=== PATIENT | female | born 1970 | race Hispanic/Latino ===

== ENCOUNTER 2017-07-15 06:23 | Emergency (ER) | payer OTHER ==
[~2017-07-15 06:23] MED LIST: ACET-66 PO; LISI-613 PO; MIRALAX PO; RANI300T4 PO; SIMV20TA6 PO
[2017-07-15 06:38] LABS: EOSINOPHILS % (AUTO) 5.1 % (0.0-8.0); HEMATOCRIT 34.9 % (36-48); LYMPHOCYTES % (AUTO) 29.1 % (21.0-51.0); MEAN CORPUSCULAR HEMOGLOBIN 29.3 pg (27.0-33.0); MEAN CORPUSCULAR HGB CONC 34.1 g/dL (32.0-36.0); MEAN CORPUSCULAR VOLUME 85.9 fL (79-99); MONOCYTES % (AUTO) 8.2 % (3.0-13.0); NEUTROPHILS % (AUTO) 56.6 % (40.0-77.0); NUCLEATED RED BLOOD CELLS 0.1 % (0.0-0.19); PLATELET COUNT (AUTO) 210 K/uL (130-400); RED BLOOD CELL COUNT(AUTO) 4.06 MIL/uL (4.00-5.50); RED CELL DISTRIBUTION WIDTH 13.9 % (11.0-15.5)
[2017-07-15 06:47] LABS: CREATININE 1.2 mg/dL (0.5-1.5); POTASSIUM 3.9 mmol/L (3.5-5.1)
[2017-07-15 06:48] LABS: APPEARANCE,URINE CLOUDY (CLEAR); BILIRUBIN,URINE NEGATIVE (NEGATIVE); COLOR,URINE YELLOW (YELLOW); GLUCOSE, URINE (UA) NEGATIVE (NEGATIVE); KETONES,URINE NEGATIVE (NEGATIVE); LEUKOCYTE ESTERASE ,URINE NEGATIVE (NEGATIVE); NITRATE,URINE NEGATIVE (NEGATIVE); OCCULT BLOOD,URINE LARGE (NEGATIVE); PH,URINE 5.5 (5.0-8.0); PROTEIN,URINE 30 (NEGATIVE); UROBILINOGEN,URINE 0.2 mg/dL (0.2-1.0)
[2017-07-15] MEDS ORDERED: ONDANSETRON HCL 4 MG/2 ML VIAL ONE (06:53)
[2017-07-15] MEDS ORDERED: MECLIZINE HCL 25 MG TABLET ONE (06:53)
[2017-07-15 07:08] LABS: BACTERIA,URINE Rare /HPF (None Seen); RBC,URINE TNTC /HPF (0-1); SQUAMOUS EPITHELIAL CELL,UR Few /LPF (0-2)
== END 2017-07-15 08:05 | disposition home or self-care (01) ==
LOC: EDH 06:23
DX: R07.9 Chest pain, unspecified (principal); R42 Dizziness and giddiness; I10 Essential (primary) hypertension; E78.5 Hyperlipidemia, unspecified; Z90.49 Acquired absence of other specified parts of digestive tract
CPT/HCPCS: 36415; 71010; 80048; 81001; 84484; 85025; 93005; 96374; 99285; J2405

== ENCOUNTER 2017-11-08 15:59 | Emergency (ER) | payer OTHER ==
[2017-11-08 16:39] LABS: APPEARANCE,URINE CLOUDY (CLEAR); BILIRUBIN,URINE NEGATIVE (NEGATIVE); COLOR,URINE YELLOW (YELLOW); GLUCOSE, URINE (UA) NEGATIVE (NEGATIVE); KETONES,URINE NEGATIVE (NEGATIVE); LEUKOCYTE ESTERASE ,URINE TRACE (NEGATIVE); NITRATE,URINE NEGATIVE (NEGATIVE); OCCULT BLOOD,URINE SMALL (NEGATIVE); PH,URINE 5.5 (5.0-8.0); PROTEIN,URINE 100 (NEGATIVE); UROBILINOGEN,URINE 0.2 mg/dL (0.2-1.0)
[2017-11-08] MEDS ORDERED: IPRATROPIUM/ALBUTEROL SULFATE 3 ML SOLUTION IH ONE (16:41)
[2017-11-08 16:46] LABS: HCG,QUAL RESULT NEGATIVE (NEGATIVE)
[2017-11-08 16:52] LABS: RAPID GROUP A STREP NEGATIVE (NEGATIVE)
[2017-11-08 16:55] LABS: SQUAMOUS EPITHELIAL CELL,UR 50-100 /HPF (0-2)
[2017-11-08 16:56] LABS: RBC,URINE None Seen /HPF (0-1)
[2017-11-08 16:57] LABS: BACTERIA,URINE Many /HPF (None Seen)
== END 2017-11-08 17:14 | disposition home or self-care (01) ==
LOC: EDH 15:59
DX: J20.9 Acute bronchitis, unspecified (principal); E78.5 Hyperlipidemia, unspecified; I10 Essential (primary) hypertension; F41.9 Anxiety disorder, unspecified; E66.9 Obesity, unspecified; Z68.42 Body mass index [BMI] 45.0-49.9, adult
CPT/HCPCS: 71046; 81001; 81025; 87804; 87880; 94640

== ENCOUNTER 2020-03-17 16:32 | Emergency (ER) | payer SELFPAY ==
[~2020-03-17 16:32] MED LIST changes: +SIMV-43 PO; -SIMV20TA6 PO
[2020-03-17 17:14] LABS: BASOPHILS % (AUTO) 0.4 % (0.0-5.0); EOSINOPHILS % (AUTO) 3.8 % (0.0-8.0); LYMPHOCYTES % (AUTO) 20.8 % (21.0-51.0); MEAN CORPUSCULAR HEMOGLOBIN 27.2 pg (27.0-33.0); MEAN CORPUSCULAR HGB CONC 33.1 g/dL (32.0-36.0); MEAN CORPUSCULAR VOLUME 82.3 fL (79-99); MONOCYTES % (AUTO) 8.4 % (3.0-13.0); NEUTROPHILS % (AUTO) 66.4 % (40.0-77.0); PLATELET COUNT (AUTO) 196 K/uL (130-400); RED BLOOD CELL COUNT(AUTO) 4.74 MIL/uL (4.00-5.50); RED CELL DISTRIBUTION WIDTH 14.3 % (11.0-15.5); WHITE BLOOD COUNT (AUTO) 5.2 K/uL (4.8-10.8)
[2020-03-17 17:22] LABS: CREATININE 0.9 mg/dL (0.5-1.5); POTASSIUM 4.1 mmol/L (3.5-5.1)
[2020-03-17 17:40] LABS: ALBUMIN 3.6 g/dL (3.5-5.0); BILIRUBIN,TOTAL 0.4 mg/dL (0.2-1.0); TOTAL PROTEIN, SERUM 8.2 g/dL (6.0-8.3)
[2020-03-17] MEDS ORDERED: ACETAMINOPHEN 325 MG TAB ONE (17:46)
[2020-03-17 18:33] LABS: APPEARANCE,URINE Cloudy (CLEAR); BILIRUBIN,URINE Negative (NEGATIVE); COLOR,URINE Red (YELLOW); GLUCOSE, URINE (UA) Negative (NEGATIVE); KETONES,URINE Negative (NEGATIVE); LEUKOCYTE ESTERASE ,URINE Trace (NEGATIVE); NITRATE,URINE Negative (NEGATIVE); OCCULT BLOOD,URINE Large (NEGATIVE); PROTEIN,URINE POS 1+ mg/dL (NEGATIVE)
[2020-03-17 18:39] LABS: HCG,QUAL RESULT NEGATIVE (NEGATIVE)
[2020-03-17] MEDS ORDERED: HYDRALAZINE HCL 20 MG/ML VIAL ONE (18:46)
[2020-03-17 18:51] LABS: BACTERIA,URINE Few /HPF (None Seen); RBC,URINE TNTC /HPF (0-1)
[2020-03-17 18:52] LABS: SQUAMOUS EPITHELIAL CELL,UR Rare /HPF (0-2)
[2020-03-17] MEDS ORDERED: LIDOCAINE 5% TOPICAL PATCH TP ONE (19:12)
== END 2020-03-17 19:19 | disposition home or self-care (01) ==
LOC: EDH 16:32
DX: M62.838 Other muscle spasm (principal); M54.5 Low back pain; F41.9 Anxiety disorder, unspecified; F32.9 Major depressive disorder, single episode, unspecified; I10 Essential (primary) hypertension; E78.5 Hyperlipidemia, unspecified; Z90.49 Acquired absence of other specified parts of digestive tract; Z87.891 Personal history of nicotine dependence
CPT/HCPCS: 36415; 74176; 80053; 81001; 81025; 83690; 84484; 85025; 93005; 99285; J0360

== ENCOUNTER 2022-01-09 12:39 | Inpatient (IN) | payer OTHER ==
[~2022-01-09] VITALS: Ht 152.4 cm; Wt 131.1 kg
[~2022-01-09 12:39] MED LIST changes: +AMLO5TAB4 PO; +Folic Acid/Vitamin B Comp W-C PO; +HYDR25 PO; +INSLAN SQ; +INSU100V3 SQ; +LINE600T11 PO; -LISI-613 PO; +METO50TA18 PO; +POTA-187 PO; +PRED20B PO; +SYRI-1628 MC; +[UNRECOGNIZED DRUG - CODE] TP
[2022-01-09] MEDS ORDERED: VANCOMYCIN 1G/250ML KIT 250 ML IV ONE (13:16)
[2022-01-09 13:19] LABS: BASOPHILS % (AUTO) 0.1 % (0.0-5.0); HEMATOCRIT 33.5 % (36-48); LYMPHOCYTES % (AUTO) 11.7 % (21.0-51.0); MEAN CORPUSCULAR HEMOGLOBIN 28.1 pg (27.0-33.0); MEAN CORPUSCULAR HGB CONC 33.1 g/dL (32.0-36.0); MEAN CORPUSCULAR VOLUME 84.8 fL (79-99); MONOCYTES % (AUTO) 8.2 % (3.0-13.0); NEUTROPHILS % (AUTO) 79.6 % (40.0-77.0); PLATELET COUNT (AUTO) 196 K/uL (130-400); RED BLOOD CELL COUNT(AUTO) 3.95 MIL/uL (4.00-5.50); RED CELL DISTRIBUTION WIDTH 13.9 % (11.0-15.5); WHITE BLOOD COUNT (AUTO) 14.7 K/uL (4.8-10.8)
[2022-01-09 13:28] LABS: CREATININE 1.4 mg/dL (0.5-1.5); POTASSIUM 3.8 mmol/L (3.5-5.1)
[2022-01-09] MEDS ORDERED: 0.9%NACL 1000ML 1,365 ML IV ONE (13:30)
[2022-01-09] MEDS ORDERED: ACETAMINOPHEN 500 MG TABLET PO ONE (13:30)
[2022-01-09] MEDS ORDERED: ZOSYN 3.375GM +NS 50ML IV SCH (13:30)
[2022-01-09] MEDS ORDERED: VANCOMYCIN 1G VIAL IVPB ONE (13:30)
[2022-01-09 13:33] LABS: BILIRUBIN,TOTAL 0.5 mg/dL (0.2-1.0); TOTAL PROTEIN, SERUM 8.3 g/dL (6.0-8.3)
[2022-01-09 13:41] LABS: CRP QUANTITATIVE 171.9 mg/L (0.00-9.0)
[2022-01-09] MEDS ORDERED: IOHEXOL 350 MG/ML 100ML INFUS..BTL IV ONE (13:43)
[2022-01-09] MEDS: MEROPENEM 1 GM VIAL IVP SCH ×2 (15:45→23:08)
[2022-01-09] MEDS ORDERED: VANCOMYCIN PROTOCOL PER PHARMACY IV SCH (16:00)
[2022-01-09] MEDS ORDERED: COMPOUND IV REFRIGERATED 1 EACH IVSOLN MISC PRN (16:00)
[2022-01-09 16:01] LABS: HEMOGLOBIN A1C 5.9 % (4.0-6.0)
[2022-01-09 17:30] LABS: APPEARANCE,URINE CLEAR (CLEAR); BILIRUBIN,URINE NEGATIVE (NEGATIVE); COLOR,URINE YELLOW (YELLOW); GLUCOSE, URINE (UA) >=1000 mg/dL (NEGATIVE); KETONES,URINE NEGATIVE (NEGATIVE); LEUKOCYTE ESTERASE ,URINE NEGATIVE (NEGATIVE); NITRATE,URINE NEGATIVE (NEGATIVE); OCCULT BLOOD,URINE TRACE-INTACT (NEGATIVE); PH,URINE 5.5 (5.0-8.0); PROTEIN,URINE NEGATIVE (NEGATIVE); UROBILINOGEN,URINE 0.2 mg/dL (0.2-1.0)
[2022-01-09 17:44] LABS: BACTERIA,URINE Few /HPF (None Seen); SQUAMOUS EPITHELIAL CELL,UR Few /HPF (0-2)
[2022-01-09 17:45] LABS: MUCUS,URINE Few LPF (None Seen)
[2022-01-09] MEDS ORDERED: 0.9%NACL 1000ML 1,000 ML IV ONE (18:00)
[2022-01-09] MEDS ORDERED: DEXL60CA3 PO (19:20)
[2022-01-09] MEDS ORDERED: FLUO40CA7 PO (19:20)
[2022-01-09] MEDS ORDERED: SITA1TAB6 PO (19:20)
[2022-01-09] MEDS ORDERED: EMPA10TA PO (19:20)
[2022-01-09] MEDS ORDERED: HYDR-4153 PO (19:20)
[2022-01-09] MEDS ORDERED: METO50TA18 PO (19:20)
[2022-01-09] MEDS ORDERED: INSU100V3 SQ (19:20)
[2022-01-09] MEDS ORDERED: ARIP5TAB56 PO (19:20)
[2022-01-09 21:50] VITALS: BP 123/50
[2022-01-09 23:54] VITALS: BP 111/53
[2022-01-10 03:46] VITALS: BP 105/46
[2022-01-10] MEDS: MEROPENEM 1 GM VIAL IVP SCH ×3 (06:53→22:21)
[2022-01-10 08:08] VITALS: BP 110/53
[2022-01-10] MEDS: DIPHENHYDRAMINE HCL 25 MG CAPSULE PO PRN ×2 (08:24→21:51)
[2022-01-10 11:10] VITALS: BP 105/55
[2022-01-10] MEDS ORDERED: ACETAMINOPHEN 500 MG TABLET PO PRN (11:30)
[2022-01-10] MEDS: VANCOMYCIN 1.5GM/NS 250ML IV SCH ×2 (12:18)
[2022-01-10 16:00] VITALS: BP 123/50
[2022-01-10] MEDS ORDERED: PERMETHRIN CREAM 5% 60GM TUBE TP SCH (17:30)
[2022-01-10] MEDS: ZOSYN 3.375GM +NS 50ML IV SCH ×2 (17:40→20:23)
[2022-01-10 19:35] VITALS: BP 115/62
[2022-01-10] MEDS: ARIPIPRAZOLE 5 MG TABLET PO SCH (20:23)
[2022-01-10] MEDS: SIMVASTATIN 20 MG TABLET PO SCH (20:23)
[2022-01-10] MEDS: METOPROLOL TARTRATE 50 MG TAB PO SCH (20:23)
[2022-01-10 23:10] VITALS: BP 110/43
[2022-01-11 03:38] VITALS: BP 103/64
[2022-01-11] MEDS: ZOSYN 3.375GM +NS 50ML IV SCH ×3 (04:53→21:57)
[2022-01-11] MEDS: MEROPENEM 1 GM VIAL IVP SCH ×3 (04:53→15:00)
[2022-01-11 08:19] VITALS: BP 111/57
[2022-01-11] MEDS: METOPROLOL TARTRATE 50 MG TAB PO SCH ×2 (09:26→20:06)
[2022-01-11] MEDS: AMLODIPINE 5 MG TAB PO SCH (09:26)
[2022-01-11] MEDS: FLUOXETINE HCL 20 MG CAPSULE PO SCH (09:26)
[2022-01-11 11:07] VITALS: BP 125/66
[2022-01-11] MEDS: VANCOMYCIN 1.5GM/NS 250ML IV SCH ×2 (12:45)
[2022-01-11 16:00] VITALS: BP 107/50
[2022-01-11] MEDS: DIPHENHYDRAMINE HCL 25 MG CAPSULE PO PRN (18:41)
[2022-01-11 20:00] VITALS: BP 112/66
[2022-01-11] MEDS: SIMVASTATIN 20 MG TABLET PO SCH (20:06)
[2022-01-11] MEDS: ARIPIPRAZOLE 5 MG TABLET PO SCH (20:06)
[2022-01-12] VITALS (22 sets, daily range): BP systolic 117–156; BP diastolic 53–81
[2022-01-12] MEDS: ZOSYN 3.375GM +NS 50ML IV SCH ×3 (04:58→22:48)
[2022-01-12 05:15] LABS: HEMATOCRIT 31.9 % (36-48); MEAN CORPUSCULAR HEMOGLOBIN 27.9 pg (27.0-33.0); MEAN CORPUSCULAR HGB CONC 32.6 g/dL (32.0-36.0); MEAN CORPUSCULAR VOLUME 85.5 fL (79-99); RED BLOOD CELL COUNT(AUTO) 3.73 MIL/uL (4.00-5.50); RED CELL DISTRIBUTION WIDTH 13.6 % (11.0-15.5); WHITE BLOOD COUNT (AUTO) 4.9 K/uL (4.8-10.8)
[2022-01-12 05:29] LABS: CREATININE 1.3 mg/dL (0.5-1.5); CRP QUANTITATIVE 45.1 mg/L (0.00-9.0); POTASSIUM 3.7 mmol/L (3.5-5.1)
[2022-01-12] MEDS: METOPROLOL TARTRATE 50 MG TAB PO SCH ×2 (09:00→23:09)
[2022-01-12] MEDS: FLUOXETINE HCL 20 MG CAPSULE PO SCH (09:00)
[2022-01-12] MEDS: AMLODIPINE 5 MG TAB PO SCH (09:00)
[2022-01-12] MEDS ORDERED: ACETAMINOPHEN 500 MG TABLET PO PRN ×2 (11:30)
[2022-01-12] MEDS ORDERED: TRAMADOL HCL 50 MG TABLET PO PRN (11:30)
[2022-01-12] MEDS ORDERED: ONDANSETRON 4MG INJ IVP PRN (11:30)
[2022-01-12] MEDS: INSULIN HUMULIN R 100 UNIT/ML 3ML SQ SCH ×3 (11:42→23:09)
[2022-01-12] MEDS: VANCOMYCIN 1.5GM/NS 250ML IV SCH ×2 (11:42)
[2022-01-12] MEDS ORDERED: ONDANSETRON 4MG INJ ONE (19:14)
[2022-01-12] MEDS ORDERED: SUCCINYLCHOLINE CHLORIDE 20 MG/ML 10 ML VIAL ONE (19:14)
[2022-01-12] MEDS ORDERED: DEXAMETHASONE SOD PHOSPHATE 10MG/ML 1ML VIAL ONE (19:14)
[2022-01-12] MEDS ORDERED: LIDOCAINE PF 100MG/5ML (2%) SYRINGE 5ML ONE (19:14)
[2022-01-12] MEDS ORDERED: SUCCINYLCHOLINE 200MG/10ML SYR ONE (19:14)
[2022-01-12] MEDS ORDERED: GLYCOPYRROLATE 1 MG/5 ML SYRINGE ONE (19:15)
[2022-01-12] MEDS ORDERED: MIDAZOLAM HCL 1 MG/ML 2ML VIAL ONE (19:15)
[2022-01-12] MEDS ORDERED: ROCURONIUM 10MG/1ML SYR 10 MG/ML ML ONE (19:15)
[2022-01-12] MEDS ORDERED: PROPOFOL 10 MG/ML 20ML VIAL IV ONE (19:15)
[2022-01-12] MEDS ORDERED: FENTANYL CITRATE PF 50 MCG/1 ML 2ML VIAL ONE (19:16)
[2022-01-12] MEDS ORDERED: NEOSTIGMINE 5MG/5ML SYR IV ONE (20:39)
[2022-01-12] MEDS ORDERED: IPRATROPIUM/ALBUTEROL SULFATE 3 ML SOLUTION IH ONE (22:00)
[2022-01-12] MEDS ORDERED: KETOROLAC 30MG VIAL (30MG/ML) ONE (22:17)
[2022-01-12] MEDS: SIMVASTATIN 20 MG TABLET PO SCH (23:09)
[2022-01-12] MEDS: ARIPIPRAZOLE 5 MG TABLET PO SCH (23:09)
[2022-01-13] VITALS (12 sets, daily range): BP systolic 105–136; BP diastolic 56–77
[2022-01-13 04:11] LABS: BASOPHILS % (AUTO) 0.2 % (0.0-5.0); HEMATOCRIT 33.9 % (36-48); LYMPHOCYTES % (AUTO) 15.5 % (21.0-51.0); MEAN CORPUSCULAR HEMOGLOBIN 27.7 pg (27.0-33.0); MEAN CORPUSCULAR HGB CONC 32.2 g/dL (32.0-36.0); MONOCYTES % (AUTO) 1.8 % (3.0-13.0); NEUTROPHILS % (AUTO) 81.4 % (40.0-77.0); PLATELET COUNT (AUTO) 213 K/uL (130-400); RED BLOOD CELL COUNT(AUTO) 3.94 MIL/uL (4.00-5.50); RED CELL DISTRIBUTION WIDTH 13.5 % (11.0-15.5); WHITE BLOOD COUNT (AUTO) 6.1 K/uL (4.8-10.8)
[2022-01-13 04:34] LABS: % IRON SATURATION 21.7 % (22-44)
[2022-01-13 05:06] LABS: CARBON DIOXIDE 23 mmol/L (21-32); CHLORIDE 104 mmol/L (101-111); CREATININE 1.3 mg/dL (0.5-1.5); GLOMERULAR FILTR. RATE CALC 46 mL/min (>60); GLUCOSE,RANDOM 156 mg/dL (70-105); POTASSIUM 4.4 mmol/L (3.5-5.1); SODIUM SERUM 137 mmol/L (136-145); UREA NITROGEN, BLOOD 10 mg/dL (7-18)
[2022-01-13 05:31] LABS: ERYTHROCYTE SEDIMENTATION RATE 82 MM/HR (0-30)
[2022-01-13] MEDS: INSULIN HUMULIN R 100 UNIT/ML 3ML SQ SCH ×4 (05:53→20:57)
[2022-01-13] MEDS: ZOSYN 3.375GM +NS 50ML IV SCH ×3 (05:58→20:45)
[2022-01-13] MEDS: FLUOXETINE HCL 20 MG CAPSULE PO SCH (09:17)
[2022-01-13] MEDS: AMLODIPINE 5 MG TAB PO SCH (09:17)
[2022-01-13] MEDS: METOPROLOL TARTRATE 50 MG TAB PO SCH ×2 (09:17→20:44)
[2022-01-13] MEDS: VANCOMYCIN 1.5GM/NS 250ML IV SCH ×2 (12:33)
[2022-01-13] MEDS: TRAMADOL HCL 50 MG TABLET PO PRN ×2 (16:10→20:45)
[2022-01-13] MEDS: DIPHENHYDRAMINE HCL 25 MG CAPSULE PO PRN (20:44)
[2022-01-13] MEDS: ARIPIPRAZOLE 5 MG TABLET PO SCH (20:44)
[2022-01-13] MEDS: SIMVASTATIN 20 MG TABLET PO SCH (20:44)
[2022-01-14] VITALS: BP 118/61
[2022-01-14 04:00] VITALS: BP 120/67
[2022-01-14] MEDS: ZOSYN 3.375GM +NS 50ML IV SCH ×2 (04:41→14:35)
[2022-01-14] MEDS: INSULIN HUMULIN R 100 UNIT/ML 3ML SQ SCH ×3 (07:20→16:30)
[2022-01-14 07:30] VITALS: BP 112/59
[2022-01-14] MEDS ORDERED: EPOETIN ALFA-EPBX (NON-ESRD) 10,000 UNIT/ML VIAL SQ SCH (08:00)
[2022-01-14] MEDS ORDERED: IRON SUCROSE COMPLEX 500 MG in 0.9% NACL 250ML 250 ML IV SCH (08:00)
[2022-01-14] MEDS ORDERED: AMLO5TAB4 PO (08:15)
[2022-01-14] MEDS ORDERED: EMPA25TA PO (08:15)
[2022-01-14] MEDS ORDERED: METO25TA6 PO (08:15)
[2022-01-14] MEDS ORDERED: AMOX-426 PO (08:21)
[2022-01-14] MEDS ORDERED: SEMA1PEN3 SQ (08:21)
[2022-01-14] MEDS: AMLODIPINE 5 MG TAB PO SCH (08:49)
[2022-01-14] MEDS: FLUOXETINE HCL 20 MG CAPSULE PO SCH (08:49)
[2022-01-14] MEDS ORDERED: CYANOCOBALAMIN (VITAMIN B-12) 1000 MCG/ML 1ML VIAL IM SCH (09:00)
[2022-01-14] MEDS ORDERED: METOPROLOL TARTRATE 50 MG TAB PO SCH (09:00)
[2022-01-14 11:35] VITALS: BP 133/67
[2022-01-14] MEDS ORDERED: VANCOMYCIN IV SCH ×2 (12:00)
[2022-01-14] MEDS ORDERED: NS IV SCH ×2 (12:00)
[2022-01-14 15:40] VITALS: BP 132/76
== END 2022-01-14 18:15 | disposition home or self-care (01) | DRG 872 ==
LOC: EDH 12:39 → EDHIP 15:46 → 4DH 21:33
PROVIDERS: ADMIT Internal Medicine; ATTEND Internal Medicine
PROC: 0J990ZZ Drainage of Buttock Subcutaneous Tissue and Fascia, Open Approach (ICD-10-PCS; principal; 2022-01-12 20:50)
DX: A41.9 Sepsis, unspecified organism (principal); L02.31 Cutaneous abscess of buttock; L03.317 Cellulitis of buttock; Z68.43 Body mass index [BMI] 50.0-59.9, adult; E87.1 Hypo-osmolality and hyponatremia; E66.01 Morbid (severe) obesity due to excess calories; B86 Scabies; I10 Essential (primary) hypertension; E78.5 Hyperlipidemia, unspecified; E11.9 Type 2 diabetes mellitus without complications; Z82.3 Family history of stroke; Z82.49 Family history of ischemic heart disease and other diseases of the circulatory system; Z82.0 Family history of epilepsy and other diseases of the nervous system; Z82.5 Family history of asthma and other chronic lower respiratory diseases; Z83.3 Family history of diabetes mellitus; Z90.49 Acquired absence of other specified parts of digestive tract; Z20.822 Contact with and (suspected) exposure to COVID-19; F32.A Depression, unspecified; F41.9 Anxiety disorder, unspecified
CPT/HCPCS: 36415; 71045; 74177; 80048; 80053; 80202; 81001; 81025; 82607; 82728; 82746; 82948; 83036; 83540; 83550; 83605; 84145; 84484; 85025; 85027; 85651; 86140; 87040; 87070; 87076; 87077; 87186; 87205; 87635; 93005; 94640; 94660; 94760; C9803; G0378; J0330; J1100; J1756; J1885; J2001; J2185; J2250; J2405; J2543; J2704; J2710; J3010; J3370; J3420; J3490; J7030; J7050; J7120; Q0163; Q9967

== ENCOUNTER 2022-11-19 11:00 | Emergency (ER) | payer BC, OTHER ==
[~2022-11-19] VITALS: Ht 152.4 cm; Wt 131.5 kg
[~2022-11-19 11:00] MED LIST changes: -ACET-66 PO; +AMOX-426 PO; +ARIP5TAB56 PO; +DEXL60CA3 PO; +EMPA25TA PO; +FLUO40CA7 PO; -Folic Acid/Vitamin B Comp W-C PO; +HYDR-4153 PO; -HYDR25 PO; -INSLAN SQ; -INSU100V3 SQ; -LINE600T11 PO; +METO25TA6 PO; -METO50TA18 PO; -MIRALAX PO; -POTA-187 PO; -PRED20B PO; -RANI300T4 PO; +SEMA1PEN3 SQ; -SIMV-43 PO; -[UNRECOGNIZED DRUG - CODE] TP
[2022-11-19] MEDS ORDERED: IBUPROFEN 600 MG TABLET PO SCH (12:00)
[2022-11-19] MEDS ORDERED: IBUP-2070 PO (12:33)
[2022-11-19 13:30] VITALS: BP 158/87
== END 2022-11-19 13:31 | disposition home or self-care (01) ==
LOC: EDH 11:00
DX: S63.501A Unspecified sprain of right wrist, initial encounter (principal); I10 Essential (primary) hypertension; E11.9 Type 2 diabetes mellitus without complications; F32.A Depression, unspecified; F41.9 Anxiety disorder, unspecified; Z90.49 Acquired absence of other specified parts of digestive tract; Z79.899 Other long term (current) drug therapy; X58.XXXA Exposure to other specified factors, initial encounter; Y93.89 Activity, other specified; Y92.89 Other specified places as the place of occurrence of the external cause; Y99.8 Other external cause status
CPT/HCPCS: 73110

== ENCOUNTER 2024-09-01 20:39 | Inpatient (IN) | payer BC ==
[~2024-09-01] VITALS: Ht 152.4 cm; Wt 110.6 kg
[~2024-09-01 20:39] MED LIST changes: -AMLO5TAB4 PO; -AMOX-426 PO; +ARIP5TAB51 PO; -ARIP5TAB56 PO; +AZIL80TA PO; +EMPA10TA PO; -EMPA25TA PO; +FERR159T2 PO; -HYDR-4153 PO; +HYDR25TA67 PO; +LORA10TA7 PO; -METO25TA6 PO; +PITA4TAB PO; -SEMA1PEN3 SQ; -SYRI-1628 MC; +TOLT4CAP PO
--- NOTE | 2024-09-01 21:15 | NUR ---
SEPESIS ALERT CALLED.
[2024-09-01 22:25] LABS: BASOPHILS # (AUTO) 0.04 K/uL (0.00-0.20); BASOPHILS % (AUTO) 0.3 % (0.0-5.0); EOSINOPHILS # (AUTO) 0.08 K/uL (0.00-0.70); EOSINOPHILS % (AUTO) 0.6 % (0.0-8.0); HEMATOCRIT 34.6 % (36-48); IMMATURE GRANULOCYTE ABSOLUTE 0.05 K/uL (0-1); LYMPHOCYTES # (AUTO) 1.8 K/uL (1.0-4.8); LYMPHOCYTES % (AUTO) 13.5 % (21.0-51.0); MEAN CORPUSCULAR HEMOGLOBIN 30.2 pg (27.0-33.0); MEAN CORPUSCULAR HGB CONC 33.8 g/dL (32.0-36.0); MEAN CORPUSCULAR VOLUME 89.4 fL (79-99); MONOCYTES # (AUTO) 1.2 K/uL (0.1-1.0); MONOCYTES % (AUTO) 8.8 % (3.0-13.0); NEUTROPHILS # (AUTO) 10.3 K/uL (1.8-7.7); NEUTROPHILS % (AUTO) 76.4 % (40.0-77.0); PLATELET COUNT (AUTO) 205 K/uL (130-400); RED BLOOD CELL COUNT(AUTO) 3.87 MIL/uL (4.00-5.50); RED CELL DISTRIBUTION WIDTH 12.5 % (11.0-15.5); WHITE BLOOD COUNT (AUTO) 13.5 K/uL (4.8-10.8)
[2024-09-01 22:35] LABS: POTASSIUM 3.5 mmol/L (3.5-5.1)
--- NOTE | 2024-09-01 22:36 | ERN ---
ED Note History of Present Illness Stated Complaint: ABSCESS Chief Complaint: Abscess Dictation: This is a 54-year-old female with multiple medical problems presented to the emergency room complaining of left perirectal abscess for the past 3 days. Apparently she went to see her PCP and received Bactrim twice a day antibiotics and a topical antibiotic cream. She has had similar episodes twice in the past requiring drainage. This is located on the medial aspect of the perineum and adjacent to the anus. No history of any drainage reported. Temperature 101 pulse 100 respirations 18 blood pressure 136/77 with a pulse oximetry of 95% on room air Her chronic medical problems include diabetes mellitus, hypertension, hypercholesterolemia and history of chronic kidney disease. Morbid obesity BMI of 50 Allergies: Coded Allergies: No Known Drug Allergies (Unverified Allergy, 07/21/12) Home Meds Reported Medications Tolterodine Tartrate (Detrol LA) 4 Mg Cap.er.24h, 4 MG PO DAILY, CAPSULE.DR 08/18/23 Loratadine (Loratadine) 10 Mg Tablet, 10 MG PO DAILY, TAB 08/18/23 Empagliflozin (Jardiance) 10 Mg Tablet, 10 MG PO DAILY, TAB 08/18/23 Azilsartan Medoxomil (Edarbi) 80 Mg Tablet, 80 MG PO DAILY, TAB 08/18/23 Pitavastatin Calcium (Pitavastatin Calcium) 4 Mg Tablet, 4 MG PO DAILY, TAB 08/18/23 Ferrous Sulfate, Dried (Iron) 159 Mg (45 Mg Iron) Tablet.er, 159 MG PO DAILY, TAB 08/18/23 Dexlansoprazole (Dexilant) 60 Mg Cap.mp, 60 MG PO DAILY 01/09/22 Fluoxetine HCl (Prozac) 40 Mg Capsule, 40 MG PO DAILY, CAP 01/09/22 Aripiprazole (Aripiprazole) 5 Mg Tablet, 5 MG PO HS, TAB 01/09/22 Hydralazine HCl (Hydralazine HCl) 25 Mg Tablet, 25 MG PO TID, TAB 01/09/22 Past Medical History Past Medical History: Diabetes-Type II, High Cholesterol, Hypertension, Renal Disese Additional Past Medical Hx: Obesity Surgical History: Other Surgical History Other: LEFT UPPER ARM FISTULA Family History: Negative Social History: Negative History: Not Applicable RN Note Reviewed/Agreed w/PFSH: Yes Review of System Dictation Constitutional: Pause for fever,chills, and denies weight loss Eyes: Negative for injury, pain,redness, and discharge ENT: Negative for injury,pain or swelling Cardiovascular: Negative for chest pain, palpitations, and edema Respiratory: Negative for shortness of breath, cough, and wheezing, Abdomen/GI: Negative for abdominal pain, nausea, vomiting, diarrhea, and c onstipation Back: Negative for injury and pain : Negative for injury, bleeding and discharge MS/Extremity: Negative for injury and deformity Skin: Negative for rash, and discoloration pain in the perineal area and left medial aspect of the perianal area with induration. Neuro: Negative for headache, weakness, numbness, tingling, and seizure Psych: Negative for suicide ideation, homicidal ideation, and hallucinations Initial Vital Sign VS Vital Signs Date Time Temp Pulse Resp B/P (MAP) Pulse Ox O2 Delivery O2 Flow Rate FiO2 09/01/24 21:11 100.9 100 18 136/77 95 Room Air 0 Physical Exam Dictation General: awake, alert, NAD obese feet Head/Face: Normocephalic, atraumatic Eyes: PERRL, EOMI, vision at baseline ENT: oral cavity clear, TMs clear, no signs of infection Neck: Trachea midline, supple, no nuchal rigidity Cardiovascular: RRR, normal S1/S2, No MRGs, no JVD Respiratory: CTAB, no respiratory distress, No rales or wheezes Abdomen: Soft, non-tender, non-distended, normal bowel sounds, no guarding or rebound. Perineal area left medial area adjacent to the anus area of old healed scar from previous drainage and induration and tenderness but no redness warmth or any drainage noted. Skin: Warm, dry, normal turgor, no rash MS/Extremity: Pulses equal, no cyanosis, neurovascular intact, FROM Neuro: COAx4, GCS 15, strength 5/5, CN 2-12 intact, normal cerebellar exam, normal gait, Psych: Normal behavior, mood, and affect normal Extremities-trace edema without any palpable cords, Homans sign is negative Results (Laboratory/Radiology) Laboratory/Radiology Laboratory Tests Test 09/01/24 22:13 09/02/24 01:22 White Blood Count 13.5 K/uL (4.8-10.8) H Red Blood Count 3.87 MIL/uL (4.00-5.50) L Hemoglobin 11.7 g/dL (12.0-16.0) L Hematocrit 34.6 % (36-48) L Mean Corpuscular Volume 89.4 fL (79-99) Mean Corpuscular Hemoglobin 30.2 pg (27.0-33.0) Mean Corpuscular Hemoglobin Concent 33.8 g/dL (32.0-36.0) Red Cell Distribution Width 12.5 % (11.0-15.5) Platelet Count 205 K/uL (130-400) Mean Platelet Volume 10.8 fL (7.5-10.5) H Immature Granulocyte % (Auto) 0.4 % (0-1) Neutrophils (%) (Auto) 76.4 % (40.0-77.0) Lymphocytes (%) (Auto) 13.5 % (21.0-51.0) L Monocytes (%) (Auto) 8.8 % (3.0-13.0) Eosinophils (%) (Auto) 0.6 % (0.0-8.0) Basophils (%) (Auto) 0.3 % (0.0-5.0) Neutrophils # (Auto) 10.3 K/uL (1.8-7.7) H Lymphocytes # (Auto) 1.8 K/uL (1.0-4.8) Monocytes # (Auto) 1.2 K/uL (0.1-1.0) H Eosinophils # (Auto) 0.08 K/uL (0.00-0.70) Basophils # (Auto) 0.04 K/uL (0.00-0.20) Absolute Immature Granulocyte (auto 0.05 K/uL (0-1) Nucleated Red Blood Cells 0.0 % (0.0-0.19) Sodium Level 136 mmol/L (136-145) Potassium Level 3.5 mmol/L (3.5-5.1) Chloride Level 98 mmol/L (101-111) L Carbon Dioxide Level 34 mmol/L (21-32) H Blood Urea Nitrogen 19 mg/dL (7-18) H Creatinine 2.0 mg/dL (0.5-1.0) H Glomerular Filtration Rate Calc 29 mL/min (>90) Random Glucose 203 mg/dL (70-105) H Lactic Acid Level 1.4 mmol/L (0.8-2.5) Total Calcium 9.3 mg/dL (8.5-10.1) Total Creatine Kinase 34 U/L (21-232) # Troponin I High Sensitivity 12 ng/L (4-50) Urine Color YELLOW (YELLOW) Urine Appearance CLOUDY (CLEAR) H Urine pH 7.0 (5.0-8.0) Urine Specific [place] 1.027 (1.001-1.031) Urine Protein 100 mg/dL (NEGATIVE) H Urine Glucose (UA) NEGATIVE mg/dL (NEGATIVE) Urine Ketones NEGATIVE mg/dL (NEGATIVE) Urine Occult Blood NEGATIVE (NEGATIVE) Urine Nitrate NEGATIVE (NEGATIVE) Urine Bilirubin NEGATIVE mg/dL (NEGATIVE) Urine Urobilinogen 2.0 mg/dL (0.2-1.0) H Urine Leukocyte Esterase 250 Hermelindo/uL (NEGATIVE) H Labs Reviewed?: Yes CT Scan Comment: PATIENT: RAMY DOVER MR#: [id number] : 1970 SEX: F AGE: 54 LOCATION: [facility] ORDER 17 STATUS: [facility] REPORT#: [id number] SERVICE 16 REASON: perirectal abscess ORDERING PHYSICIAN: JOHANNE DALEY MD PROCEDURE: ABD PEL WO - CT ABDOMEN/PELVIS W/O CONTRAST CT ABDOMEN/PELVIS W/O CONTRAST HISTORY: Perirectal abscess COMPARISON: 01/09/2022 TECHNIQUE: Multiple sequential axial images of the abdomen and pelvis were obtained from the dome of the diaphragm through symphysis pubis. Patient was not given contrast through intravenous route. Oral contrast was not given. FINDINGS: No pleural effusion is seen bilaterally. There is no evidence of parenchymal disease or pulmonary nodule of the visualized lower lungs. Degenerative changes of the thoracolumbar spine are present. The heart is not enlarged. Coronary arterial calcifications are seen. Liver is enlarged with fatty changes measuring 18 cm. Post cholecystectomy changes are seen. The liver, spleen, adrenal glands and pancreas are unremarkable. There is no evidence of hydronephrosis bilaterally. No evidence of renal stone is seen. Fecal material is seen in the colon. There are normal size retroperitoneal and mesenteric lymph nodes. No ascites is seen. Appendix is not seen limiting evaluation. There is right perirectal fat stranding. There is small right perirectal abscess measuring 2.6 cm. Pelvic sidewalls are symmetric bilaterally. Bladder is poorly distended. IMPRESSION: 1. There is right perirectal fat stranding. There is small right perirectal abscess measuring 2.[address] was performed with one or more following dose reduction techniques: automated exposure control, adjustment of the mA and kv according to patient's size, or use of a iterative reconstruction technique. DICTATED BY: SUZY ERNANDEZ MD DATE: 09/01/242320 ELECTRONICALLY SIGNED BY: SUZY ERNANDEZ MD DATE: 09/01/242325 ED Course ED Course Orders Procedure Category Date Status Time Iv Insertion CPOE 09/01/24 Transmitted 21:16 Pulse Ox(Continuous) RT 09/01/24 Transmitted 21:16 Vital Signs Per CPOE 09/01/24 Transmitted Routine 21:16 12 Lead Ekg Tracing- EKG 09/01/24 Logged Technical 21:16 Cbc With Differential LAB 09/01/24 Complete 21:16 Blood Cult KARMEN 09/01/24 In Process 21:16 Urinalysis Profile LAB 09/01/24 In Process 21:16 Culture Urine KARMEN 09/01/24 In Process 21:16 Creatine Kinase, Total LAB 09/01/24 Complete 21:16 Troponin I High LAB 09/01/24 Complete Sensitivity 21:16 Lactic Acid LAB 09/01/24 Complete 21:16 Basic Metabolic Panel LAB 09/01/24 Complete 21:16 Ct Abdomen/Pelvis W/O CT 09/01/24 Resulted Contrast 22:17 Zosyn 3.375gm+Ns 50ml PHA 09/02/24 Complete (Zosyn 3.375gm+Ns 00:00 Vancomycin 1g/250ml PHA 09/02/24 Complete Kit (Vancomycin 1g/2 00:30 Edm Admit Bridge Order ADM 09/02/24 Transmitted 00:06 Current Medications Medications (Trade) Dose Ordered Sig/Sherman Route PRN Reason Start Time Stop Time Status Last Admin Dose Admin Piperacillin Sod/ Tazobactam Sod (Zosyn 3.375gm+NS 50ml) 3.375 gm ONCE ONCE IV 09/02/24 00:00 09/02/24 00:02 DC 09/02/24 00:15 Vancomycin HCl (Vancomycin 1g/ 250ml Kit) 1 gm ONCE ONCE IV 09/02/24 00:30 09/02/24 00:31 DC 09/02/24 00:45 Vital Signs Date Time Temp Pulse Resp B/P (MAP) Pulse Ox O2 Delivery O2 Flow Rate FiO2 09/01/24 21:11 100.9 100 18 136/77 95 Room Air 0 We will perform diagnostic labs, advanced imaging and administer medications according to the patient's complaint. Once the results are available, will review and personally interpreted the labs to rule out any acute life- threatening emergency the trach require immediate intervention and treatment. I will then re-evaluate the patient after treatment and diagnostic exams have return to determine whether the patient requires any further testing, can safely be discharged home or need further admission to hospital for additional treatment and evaluation. CBC showed a white count of 13.5 hemoglobin of 11.7. BNP 7 showed a BUN and creatinine are 19 and 2.0. Lactate is 1.4 [address] scan of the abdomen and pelvis reviewed-evidence of the perirectal stranding and abscess about 2.6 cm in size. 1:53 p.m.-consulted Dr. Alyse Gasca, general surgery and discussed patient's condition with her. She recommended admission and keeping her NPO and she will see the patient in consultation and consider an I and D. We will admit patient for IV antibiotic therapy local heating packs Patient was accepted by [facility] mid-level provider for admission and further management Medical Decision Making MDM MDM: Differential diagnosis: Perirectal abscess, fistula, perirectal cyst, proctitis Rationale: Tests considered and ordered secondary to shared decision making include: labs, ECG and radiology Previous outside records reviewed: Old ER visits. Risk of complication and/or morbidity or mortality of patient management: None Medications-Per medication reconciliation Need for hospitalization: Patient does meet criteria for hospitalization. Need for emergency major/minor surgery: No There are no social concerns with this patient. Prescription drug management Prescriptions will include symptomatic care Patient's prior external medical records from other ER visits were reviewed by scott patterson as indicated. Prior testing and results from previous visits were reviewed. Prior tests were taken into account with medical decision making and resource utilization, independent historian/historians were used to obtain complete medical history. I independently interpreted the test that were performed, results were reviewed by me and considered findings on radiology if ordered. Medical management and examination interpretation discussions were had by me with other qualified healthcare professionals as indicated for the patient's care. Problem List Problem List: (1) Perirectal abscess (2) Diabetes (3) Obesity DX & DISP Disposition: Inpatient Decision to Admit Time: 23:59 Departure Impression: Primary Impression: Sepsis Additional Impressions: Uncontrolled diabetes mellitus, Perirectal abscess, Obesity Condition: Stable Additional Instructions: Patient was informed of all the diagnostic labs and procedures conducted in the emergency room today and demonstrated understanding of the results. I personally reviewed and interpreted all the diagnostic exams performed in the ER today. The patient will be admitted to the hospital for further treatment and evaluation. Disposition-admit to facility Condition-stable/guarded Course-uncertain at this time Pain status-decreased Assessment-exam unchanged Admission Certification- I certify that the patients status is appropriate and is based on my best clinical judgment and the patient's condition as documented in the medical records Referrals: SELF,REFERRAL (PCP) JOHANNE DALEY MD Sep 01, 2024 22:36
--- NOTE | 2024-09-01 23:26 | HMCIMG ---
CT ABDOMEN/PELVIS W/O CONTRAST HISTORY: Perirectal abscess COMPARISON: 01/09/2022 TECHNIQUE: Multiple sequential axial images of the abdomen and pelvis were obtained from the dome of the diaphragm through symphysis pubis. Patient was not given contrast through intravenous route. Oral contrast was not given. FINDINGS: No pleural effusion is seen bilaterally. There is no evidence of parenchymal disease or pulmonary nodule of the visualized lower lungs. Degenerative changes of the thoracolumbar spine are present. The heart is not enlarged. Coronary arterial calcifications are seen. Liver is enlarged with fatty changes measuring 18 cm. Post cholecystectomy changes are seen. The liver, spleen, adrenal glands and pancreas are unremarkable. There is no evidence of hydronephrosis bilaterally. No evidence of renal stone is seen. Fecal material is seen in the colon. There are normal size retroperitoneal and mesenteric lymph nodes. No ascites is seen. Appendix is not seen limiting evaluation. There is right perirectal fat stranding. There is small right perirectal abscess measuring 2.6 cm. Pelvic sidewalls are symmetric bilaterally. Bladder is poorly distended. IMPRESSION: 1. There is right perirectal fat stranding. There is small right perirectal abscess measuring 2.[address] was performed with one or more following dose reduction techniques: automated exposure control, adjustment of the mA and kv according to patient's size, or use of a iterative reconstruction technique.
[2024-09-02] VITALS (8 sets, daily range): BP systolic 95–147; BP diastolic 45–70; PULSE 80–96; RESP 17–20; TEMP 98–99.3; O2SAT 96–97
[2024-09-02] MEDS: ZOSYN 3.375GM +NS 50ML IV ONE (00:15)
[2024-09-02] MEDS: VANCOMYCIN KIT 1 GM/250 ML IV.KIT IV ONE (00:45)
[2024-09-02 01:31] LABS: APPEARANCE,URINE CLOUDY (CLEAR); BILIRUBIN,URINE NEGATIVE (NEGATIVE); COLOR,URINE YELLOW (YELLOW); GLUCOSE, URINE (UA) NEGATIVE (NEGATIVE); KETONES,URINE NEGATIVE (NEGATIVE); LEUKOCYTE ESTERASE ,URINE 250 Leu/uL (NEGATIVE); NITRATE,URINE NEGATIVE (NEGATIVE); OCCULT BLOOD,URINE NEGATIVE (NEGATIVE); PROTEIN,URINE 100 mg/dL (NEGATIVE)
[2024-09-02 01:33] LABS: ADD UA MICROSCOPIC YES
[2024-09-02 01:37] LABS: BACTERIA,URINE MANY /HPF (None Seen); MUCUS,URINE RARE LPF (None Seen); SQUAMOUS EPITHELIAL CELL,UR MANY /HPF (0-2); WBC,URINE 26-50 /HPF (0-1)
--- NOTE | 2024-09-02 03:00 | NUR ---
PATIENT DID NOT BRING HOME MEDICATIONS
[2024-09-02] MEDS: acetaMINOPHEN 325 MG TAB PO ONE (03:30)
[2024-09-02] MEDS ORDERED: DEXTROSE 50%-WATER 50 ML DISP.SYRIN IV PRN ×2 (04:30→11:30)
[2024-09-02] MEDS ORDERED: VANCOMYCIN 1G/250ML KIT 250 ML IV SCH (04:30)
[2024-09-02] MEDS ORDERED: VANCOMYCIN PROTOCOL PER PHARMACY IV SCH (04:30)
[2024-09-02] MEDS ORDERED: GLUCAGON 1MG KIT 1 MG ML IM PRN ×2 (04:30→11:30)
[2024-09-02] MEDS: FAMOTIDINE 20MG VIAL IV SCH (04:45)
--- NOTE | 2024-09-02 04:58 | HP ---
[facility] HISTORY AND PHYSICAL Date of Service: Sep 02, 2024 Time of Service: 04:11 PCP: HISTORY OF PRESENT ILLNESS: This is a 54-year-old female with past medical history of diabetes, hyperlipidemia, hypertension, end-stage renal disease on hemodialysis Tuesday T tuesday and morbid obesity who presents to the ED for complaints of right perirectal abscess which started on Tuesday four days ago. Patient reports she went to see her PCP last and she was started on antibiotic and some topical cream but afforded no relief and last Tuesday she started having on and off fever per patient pain intensity is increasing and getting worse so she decided to come to the ED for evaluation. Patient states she had periractal abscess in the past and requires I&D 2x. The last time she was admitted on January 09, 2022 and underwent incision and drainage of right buttock performed by by Dr. Joiner on January 12, 2022 and now she comes back again for the same problem she said. Patient also reports she is being dialyzed last dialysis was Tuesday and they removed 1 L and his product management manager is Dr. Shepard she said. Patient also reports she had a heart catheterization in the past was told everything was normal. Seen and examined patient in the ER awake alert and coherent continue to complain of pain to the right buttock area. Patient denies nausea, vomiting, diarrhea, abdominal pain, chest pain, palpitation and shortness of breaths. Latest vital signs temperature 99.3, heart rate 90, blood pressure 103/66, saturation 96% on room air. Labs: WBC 13.5 , hemoglobin 11.7, hematocrit 34.6 platelet count 205. Chloride 98, CO2 34, BUN 19, creatinine 2.0, GFR 29 glucose 203 . Lactic acid 1.4 troponin 12. Urinalysis consistent with urinary tract infection. CT abdomen and pelvis without contrast result revealed there is right perirectal fat stranding there is small right perirectal abscess measuring 2.6 cm. While in the ER patient received Tylenol 650 mg p.o., vancomycin 1 g IV and Zosyn IV. As per ER MD, consulted general surgery Dr. Alyse Gasca and agreed to evaluate the patient. We will admit patient for further medical management. REVIEW OF SYSTEMS CONSTITUTIONAL: Positive fever Denies chills, or night sweats. No unintentional weight loss reported. NEUROLOGICAL: Denies headache, amaurosis fugax, motor weakness, sensory deficit, vertigo/spinning sensation, gait abnormalities, or tremors. ENT: No hearing loss, otalgia, otorrhea, rhinitis, rhinorrhea, hoarseness, or sore throat. CARDIOVASCULAR: Denies any exertional angina, dyspnea on exertion, orthopnea, paroxysmal nocturnal dyspnea, palpitations, life-threatening arrhythmias, claudication. PULMONARY: Denies any shortness of breath, cough, phlegm/sputum, hemoptysis, pleuritic chest pain. SLEEP: Denies morning headaches, daytime somnolence or napping. Denies di fficulty falling asleep, staying asleep, waking from sleep. Denies knowledge of snoring. GASTROINTESTINAL: Denies any type of dysphagia to either liquids or solids. Denies nausea, vomiting, pyrosis, early satiety, abdominal pain, diarrhea, constipation, or changes in stool consistency or caliber. Denies coffee-ground emesis, hematemesis, hematochezia, or melanotic stools. GENITOURINARY: Denies frequency, urgency, nocturia, hematuria or incontinence (Storage/Irritative symptoms.) Low urinary stream, straining to void, urinary intermittency or hesitancy, splitting of the voiding stream, terminal dribbling. ENDOCRINOLOGIC: Denies polyuria, polydipsia, polyphagia or heat/cold intolerances. HEMATOLOGIC: Denies thrombophilia/previous clots, or coagulopathy/bleeding disorders. ONCOLOGIC: Denies personal history of malignancy. DERMATOLOGIC: Denies rashes or pruritus. PSYCHIATRIC: Denies any suicidal or homicidal ideation. Denies hallucinations. PAST MEDICAL HISTORY: [ Morbid obesity, diabetes mellitus, hypertension, hyperlipidemia, end-stage renal disease on hemodialysis perirectal abscess ] PAST SURGICAL HISTORY: [I and D of perirectal abscess x2, Lava, left heart catheterization PermCath placement ] PAST SOCIAL HISTORY: [ Patient lives with daughter. Patient denies alcohol tobacco and recreational drug use ] FAMILY HISTORY: [ Hypertension, asthma, hepatic cirrhosis, cardiovascular disease, stroke, diabetes mellitus, Chronic obstructive pulmonary disease ] Coded Allergies: No Known Drug Allergies (Unverified Allergy, 07/21/12) PHYSICAL EXAM GENERAL APPEARANCE: The patient is awake, alert, and oriented, in no acute cardiopulmonary distress. NEUROLOGICAL: Cranial nerves II-XII grossly intact. Motor is 5/5 in bilateral upper and lower extremities proximal to distal. No sensory deficits. HEENT: Face is symmetric. Pupils are equal and reactive. Extraocular movements are intact. NECK: Supple. No JVD. No thyromegaly. No submental, submandibular, pre- /postauricular, occipital or supraclavicular lymphadenopathy. CHEST: Normal chest expansion. No Telemetry. LUNGS: Absence of any rales, rhonchi or any wheezing. CARDIOVASCULAR: Regular. S1 and S2 normal. No appreciable rubs, murmurs or gallops. ABDOMEN: Morbidly obese Soft, nontender, and nondistended. There is no rebound, voluntary guarding, or rigidity. : Deferred. No Jones. EXTREMITIES: Non-edematous and not cyanotic. No clubbing. Good capillary refill. SKIN: No skin breakdown. Vital Sign (Last 24 Hours) 09/02/24 09/02/24 03:25 03:30 Temp 99.3 Pulse 90 Resp 18 B/P (MAP) 103/66 Pulse Ox 96 O2 Delivery Room Air* O2 Flow Rate 0 FiO2 21 LABS: Laboratory: Test 09/02/24 01:22 09/01/24 22:13 Range/Units Urine Color YELLOW YELLOW Urine Appearance CLOUDY H CLEAR Urine pH 7.0 5.0-8.0 Urine Specific [place] 1.027 1.001-1.031 Urine Protein 100 H NEGATIVE mg/dL Urine Glucose (UA) NEGATIVE NEGATIVE mg/dL Urine Ketones NEGATIVE NEGATIVE mg/dL Urine Occult Blood NEGATIVE NEGATIVE Urine Nitrate NEGATIVE NEGATIVE Urine Bilirubin NEGATIVE NEGATIVE mg/dL Urine Urobilinogen 2.0 H 0.2-1.0 mg/dL Urine Leukocyte Esterase 250 H NEGATIVE [place]/uL Urine RBC 11-25 H 0-1 /HPF Urine WBC 26-50 H 0-1 /HPF Urine Squamous Epithelial Cells MANY 0-2 /HPF Urine Bacteria MANY None Seen /HPF White Blood Count 13.5 H 4.8-10.8 K/uL Red Blood Count 3.87 L 4.00-5.50 MIL/uL Hemoglobin 11.7 L 12.0-16.0 g/dL Hematocrit 34.6 L 36-48 % Mean Corpuscular Volume 89.4 79-99 fL Mean Corpuscular Hemoglobin 30.2 27.0-33.0 pg Mean Corpuscular Hemoglobin Concent 33.8 32.0-36.0 g/dL Red Cell Distribution Width 12.5 11.0-15.5 % Platelet Count 205 130-400 K/uL Mean Platelet Volume 10.8 H 7.5-10.5 fL Immature Granulocyte % (Auto) 0.4 0-1 % Neutrophils (%) (Auto) 76.4 40.0-77.0 % Lymphocytes (%) (Auto) 13.5 L 21.0-51.0 % Monocytes (%) (Auto) 8.8 3.0-13.0 % Eosinophils (%) (Auto) 0.6 0.0-8.0 % Basophils (%) (Auto) 0.3 0.0-5.0 % Neutrophils # (Auto) 10.3 H 1.8-7.7 K/uL Lymphocytes # (Auto) 1.8 1.0-4.8 K/uL Monocytes # (Auto) 1.2 H 0.1-1.0 K/uL Eosinophils # (Auto) 0.08 0.00-0.70 K/uL Basophils # (Auto) 0.04 0.00-0.20 K/uL Absolute Immature Granulocyte (auto 0.05 0-1 K/uL Nucleated Red Blood Cells 0.0 0.0-0.19 % Sodium Level 136 136-145 mmol/L Potassium Level 3.5 3.5-5.1 mmol/L Chloride Level 98 L 101-111 mmol/L Carbon Dioxide Level 34 H 21-32 mmol/L Blood Urea Nitrogen 19 H 7-18 mg/dL Creatinine 2.0 H 0.5-1.0 mg/dL Glomerular Filtration Rate Calc 29 >90 mL/min Random Glucose 203 H 70-105 mg/dL Lactic Acid Level 1.4 0.8-2.5 mmol/L Total Calcium 9.3 8.5-10.1 mg/dL Total Creatine Kinase 34 # 21-232 U/L Troponin I High Sensitivity 12 4-50 ng/L DIAGNOSTICS / RADIOLOGY: [ ] ASSESSMENT: Recurrent Right perirectal abscess POA Sirs with organ dysfunction POA Acute urinary tract infection POA Chronic anemia due to CKD POA End-stage renal disease on hemodialysis POA Uncontrolled diabetes POA Hypertension POA Hyperlipidemia POA Morbid obesity POA History of I and D of perirectal abscess POA PLAN: We will admit patient in medical surgical floor We will keep patient nothing by mouth We will continue Zosyn IV and vancomycin IV for broad-spectrum coverage We will start on Famotidine 20 mg IV q.48h for GI prophylaxis We will start on insulin sliding scale AC & HS with hypoglycemia protocol We will add prn medication for fever,pain,cough and nausea We will reconcile home meds once medlist available We will seek general surgery consultation We will seek Nephrology consultation We will follow up urine culture We will request labs in am Further orders to follow depending on above results Case discussed with attending physician and came up with above treatment and plan of care. ADVANCED CARE PLANNING 1. Which of the following were discussed? Hospice Care - No Therapeutic options - Yes Advance Directives - No Other discussions - 2. Discussed with who? Patient 3. Voluntary nature of this service was explained to the patient? Yes 4. Amount of time spent - _25 5. Reviewed by Physician? (if this service was performed by NPP) Yes Patient seen and examined by me. Agree with note by CHANGE OF ADDRESS CLERK SEE ADDITIONAL ORDERS PER CHART DISCUSSED WITH NURSING STAFF FRANCISCO NEVILLEP Sep 02, 2024 04:58
[2024-09-02] MEDS: INSULIN humuLIN R 100 UNIT/ML 3ML SQ SCH ×2 (05:39→11:30)
[2024-09-02] MEDS ORDERED: SULF1TAB89 PO (05:43)
[2024-09-02] MEDS ORDERED: MUPI22OI2 TP (05:43)
[2024-09-02] MEDS ORDERED: NYST30C TP (05:43)
--- NOTE | 2024-09-02 06:15 | NUR ---
home meds asked patient for her home medications. entered her bactrim, nystatin, and ointment cream. she will let her daughter know to bring them today.
[2024-09-02 06:24] LABS: BASOPHILS # (AUTO) 0.05 K/uL (0.00-0.20); BASOPHILS % (AUTO) 0.4 % (0.0-5.0); EOSINOPHILS # (AUTO) 0.07 K/uL (0.00-0.70); EOSINOPHILS % (AUTO) 0.5 % (0.0-8.0); HEMATOCRIT 30.8 % (36-48); IMMATURE GRANULOCYTE ABSOLUTE 0.04 K/uL (0-1); LYMPHOCYTES # (AUTO) 1.8 K/uL (1.0-4.8); LYMPHOCYTES % (AUTO) 13.8 % (21.0-51.0); MEAN CORPUSCULAR HEMOGLOBIN 30.2 pg (27.0-33.0); MEAN CORPUSCULAR HGB CONC 34.7 g/dL (32.0-36.0); MONOCYTES # (AUTO) 1.1 K/uL (0.1-1.0); MONOCYTES % (AUTO) 8.2 % (3.0-13.0); NEUTROPHILS % (AUTO) 76.8 % (40.0-77.0); PLATELET COUNT (AUTO) 189 K/uL (130-400); RED BLOOD CELL COUNT(AUTO) 3.54 MIL/uL (4.00-5.50); RED CELL DISTRIBUTION WIDTH 12.6 % (11.0-15.5)
[2024-09-02 06:39] LABS: ALBUMIN 2.8 g/dL (3.5-5.0); BILIRUBIN,TOTAL 0.5 mg/dL (0.2-1.0); CREATININE 1.9 mg/dL (0.5-1.0); POTASSIUM 3.1 mmol/L (3.5-5.1); TOTAL PROTEIN, SERUM 7.3 g/dL (6.0-8.3)
--- NOTE | 2024-09-02 06:40 | EKG ---
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
[2024-09-02 07:26] LABS: ERYTHROCYTE SEDIMENTATION RATE 80 MM/HR (0-30)
--- NOTE | 2024-09-02 08:02 | PN ---
[facility] PROGRESS NOTE Date of Service: Sep 02, 2024 Time of Service: 07:55 SUBJECTIVE: [54 yuear old female admitted for right perirectal abscess, by CT A/P. This is recurrent. She presented in the ED with sepsis with fever of 100.9, now afebrile. We will be trending her WBC and surgeon consulted. We will also consult Infectious Disease due to abscess and antbx stewardship. Patient c/o right perirectal pain. ] REVIEW OF SYSTEMS CONSTITUTIONAL: Positive fever Denies chills, or night sweats. No unintentional weight loss reported. NEUROLOGICAL: Denies headache, amaurosis fugax, motor weakness, sensory deficit, vertigo/spinning sensation, gait abnormalities, or tremors. ENT: No hearing loss, otalgia, otorrhea, rhinitis, rhinorrhea, hoarseness, or sore throat. CARDIOVASCULAR: Denies any exertional angina, dyspnea on exertion, orthopnea, paroxysmal nocturnal dyspnea, palpitations, life-threatening arrhythmias, claudication. PULMONARY: Denies any shortness of breath, cough, phlegm/sputum, hemoptysis, pleuritic chest pain. SLEEP: Denies morning headaches, daytime somnolence or napping. Denies dif ficulty falling asleep, staying asleep, waking from sleep. Denies knowledge of snoring. GASTROINTESTINAL: Denies any type of dysphagia to either liquids or solids. Denies nausea, vomiting, pyrosis, early satiety, abdominal pain, diarrhea, constipation, or changes in stool consistency or caliber. Denies coffee-ground emesis, hematemesis, hematochezia, or melanotic stools. GENITOURINARY: Denies frequency, urgency, nocturia, hematuria or incontinence (Storage/Irritative symptoms.) Low urinary stream, straining to void, urinary intermittency or hesitancy, splitting of the voiding stream, terminal dribbling. ENDOCRINOLOGIC: Denies polyuria, polydipsia, polyphagia or heat/cold i ntolerances. HEMATOLOGIC: Denies thrombophilia/previous clots, or coagulopathy/bleeding disorders. ONCOLOGIC: Denies personal history of malignancy. DERMATOLOGIC: Denies rashes or pruritus. PSYCHIATRIC: Denies any suicidal or homicidal ideation. Denies hallucinations. PHYSICAL EXAM GENERAL APPEARANCE: The patient is awake, alert, and oriented, in no acute cardiopulmonary distress. NEUROLOGICAL: Cranial nerves II-XII grossly intact. Motor is 5/5 in bilateral upper and lower extremities proximal to distal. No sensory deficits. HEENT: Face is symmetric. Pupils are equal and reactive. Extraocular movements are intact. NECK: Supple. No JVD. No thyromegaly. No submental, submandibular, pre- /postauricular, occipital or supraclavicular lymphadenopathy. CHEST: Normal chest expansion. No Telemetry. LUNGS: Absence of any rales, rhonchi or any wheezing. CARDIOVASCULAR: Regular. S1 and S2 normal. No appreciable rubs, murmurs or gallops. ABDOMEN: Morbidly obese Soft, nontender, and nondistended. There is no rebound, voluntary guarding, or rigidity. : Deferred. No Jones. EXTREMITIES: Non-edematous and not cyanotic. No clubbing. Good capillary refill. SKIN: No skin breakdown. Vital Signs (last 8hr) Date Time Temp Pulse Resp B/P (MAP) Pulse Ox O2 Delivery O2 Flow Rate FiO2 09/02/24 05:30 96 Room Air* 0 21 09/02/24 05:30 98.4 81 20 115/52 92 Room Air 09/02/24 05:16 98.4 79 18 119/58 96 Room Air* 0 21 09/02/24 03:30 99.3 09/02/24 03:25 99.3 90 18 103/66 96 Room Air* 0 21 LABS: Laboratory: Test 09/02/24 06:20 09/02/24 05:37 09/02/24 01:22 09/01/24 22:13 Range/Units White Blood Count 13.0 H 4.8-10.8 K/uL Red Blood Count 3.54 L 4.00-5.50 MIL/uL Hemoglobin 10.7 L 12.0-16.0 g/dL Hematocrit 30.8 L 36-48 % Mean Corpuscular Volume 87.0 79-99 fL Mean Corpuscular Hemoglobin 30.2 27.0-33.0 pg Mean Corpuscular Hemoglobin Concent 34.7 32.0-36.0 g/dL Red Cell Distribution Width 12.6 11.0-15.5 % Platelet Count 189 130-400 K/uL Mean Platelet Volume 10.5 7.5-10.5 fL Immature Granulocyte % (Auto) 0.3 0-1 % Neutrophils (%) (Auto) 76.8 40.0-77.0 % Lymphocytes (%) (Auto) 13.8 L 21.0-51.0 % Monocytes (%) (Auto) 8.2 3.0-13.0 % Eosinophils (%) (Auto) 0.5 0.0-8.0 % Basophils (%) (Auto) 0.4 0.0-5.0 % Neutrophils # (Auto) 10.0 H 1.8-7.7 K/uL Lymphocytes # (Auto) 1.8 1.0-4.8 K/uL Monocytes # (Auto) 1.1 H 0.1-1.0 K/uL Eosinophils # (Auto) 0.07 0.00-0.70 K/uL Basophils # (Auto) 0.05 0.00-0.20 K/uL Absolute Immature Granulocyte (auto 0.04 0-1 K/uL Nucleated Red Blood Cells 0.0 0.0-0.19 % Erythrocyte Sedimentation Rate 80 H 0-30 MM/HR Sodium Level 137 136-145 mmol/L Potassium Level 3.1 L 3.5-5.1 mmol/L Chloride Level 100 L 101-111 mmol/L Carbon Dioxide Level 29 21-32 mmol/L Blood Urea Nitrogen 20 H 7-18 mg/dL Creatinine 1.9 H 0.5-1.0 mg/dL Glomerular Filtration Rate Calc 31 >90 mL/min Random Glucose 160 H 70-105 mg/dL Total Calcium 8.6 8.5-10.1 mg/dL Magnesium Level 2.00 1.80-2.40 mg/dL Total Bilirubin 0.5 0.2-1.0 mg/dL Aspartate Amino Transf (AST/SGOT) 20 10-37 U/L Alanine Aminotransferase (ALT/SGPT) 23 12-78 U/L Alkaline Phosphatase 124 50-136 U/L Total Protein 7.3 6.0-8.3 g/dL Albumin 2.8 L 3.5-5.0 g/dL Procalcitonin 0.20 0.05-0.5 ng/mL Whole Blood Glucose 158 H 70-110 MG/DL Urine Color YELLOW YELLOW Urine Appearance CLOUDY H CLEAR Urine pH 7.0 5.0-8.0 Urine Specific Anton 1.027 1.001-1.031 Urine Protein 100 H NEGATIVE mg/dL Urine Glucose (UA) NEGATIVE NEGATIVE mg/dL Urine Ketones NEGATIVE NEGATIVE mg/dL Urine Occult Blood NEGATIVE NEGATIVE Urine Nitrate NEGATIVE NEGATIVE Urine Bilirubin NEGATIVE NEGATIVE mg/dL Urine Urobilinogen 2.0 H 0.2-1.0 mg/dL Urine Leukocyte Esterase 250 H NEGATIVE Hermelindo/uL Urine RBC 11-25 H 0-1 /HPF Urine WBC 26-50 H 0-1 /HPF Urine Squamous Epithelial Cells MANY 0-2 /HPF Urine Bacteria MANY None Seen /HPF Lactic Acid Level 1.4 0.8-2.5 mmol/L Total Creatine Kinase 34 # 21-232 U/L Troponin I High Sensitivity 12 4-50 ng/L Current Medications Medications (Trade) Dose Ordered Sig/Sherman Route PRN Reason Start Time Stop Time Status Last Admin Dose Admin Dextrose (D50w) 50 ml AD PRN IV HYPOGLYCEMIA PROTOCOL 09/02/24 04:30 10/02/24 04:29 Famotidine (Pepcid 20mg Vial) 20 mg Q48H IV 09/02/24 04:30 10/02/24 04:29 09/02/24 04:45 20 MG Glucagon (Glucagon 1mg Kit) 1 mg AD PRN IM HYPOGLYCEMIA PROTOCOL 09/02/24 04:30 10/02/24 04:29 Hydromorphone HCl (DiLAUDid 0.5MG INJ) 0.2 mg Q6H PRN IVP SEVERE PAIN (7-10) 09/02/24 04:30 09/07/24 04:29 Insulin Human Regular (humuLIN R 100 UNIT/ML 3ML) INSULIN SLIDING SCAL... ACHS SQ 09/02/24 07:30 10/02/24 07:29 Piperacillin Sod/ Tazobactam Sod 50 ml @ 12.5 mls/hr Q8H IV 09/02/24 08:00 09/12/24 07:59 Vancomycin HCl 250 ml @ 125 mls/hr ONCE IV 09/02/24 04:30 09/02/24 04:37 DC Vancomycin HCl (Vancomycin 750mg) 750 mg TTHSPHD IVPB 09/04/24 16:00 09/14/24 15:59 Vancomycin HCl (Vancomycin Protocol) 1 each AD IV 09/02/24 04:30 09/16/24 04:29 DIAGNOSTICS / RADIOLOGY: [ ] ASSESSMENT: Sepsis with orgran dysfunction (Tmax 100.9, WBC 13, HR 100, source perirectal abscess), POA Recurrent Right perirectal abscess POA Complicated acute urinary tract infection POA Chronic anemia due to CKD POA End-stage renal disease on hemodialysis POA Uncontrolled diabetes POA Hypertension POA Hyperlipidemia POA Morbid obesity POA History of I and D of perirectal abscess POA PLAN: Continue to be in Medical Surgical Keep nothing by mouth We will continue Zosyn IV and vancomycin IV for broad-spectrum coverage C/w Famotidine 20 mg IV q.48h for GI prophylaxis C/w insulin sliding scale AC & HS with hypoglycemia protocol C/w prn medication for fever,pain,cough and nausea Home meds reviewed and reconcile Follow up with general surgery consultation Nephrology consultation for inpatient HD We consult Infectious Disease for rectal abscess We will follow up urine culture We will request labs in am Further orders to follow depending on above results Treatment plan discussed with patient and family at the bedside Medications to be reconciled once obtained by patient and/or family and available to be reconciled in computer P.r.n. medication for pain nausea and vomiting Questions were answered We will continue to monitor the patient closely [employer] Agent for disposition Rehab: PT/OT/ST GI: PPI DVT: SCD's Code Status: Full Resuscitation Disposition: TBD Prognosis: Guarded NEURO: Minimize central acting medications as possible. Fall Precautions. Well lighted room through the day and minimize interruptions through the night to prevent acute delirium. PULMONARY: Supplemental 02 as needed BiPAP as necessary, for respiratory distress Titrate Fio2 to keep Spo2 > or = 90% DuoNebs and CPT as needed IS hourly while awake for pulmonary hygiene Out of bed to chair as tolerated VAP Bundle Maintain aspiration precautions at all times CARDIOVASCULAR: Follow hemodynamics. Vital signs per facility protocol GI & NUTRITION: Continue nutritional support Aspirations precautions Prokinetic agents and laxatives as needed KIDNEYS & ELECTROLYTES: Strict monitoring of intake and output Daily weights Avoid nephrotoxic agents Monitor electrolytes and replace as needed Goal urine output of 30mL/hr or 0.5mL/kg/hr Medications to be dosed according to renal function. Avoid contrast if possible ENDOCRINE: Maintain blood glucose between 100-180 at all times. Insulin sliding scale for blood glucose management Hypoglycemia and hyperglycemia protocol in place INFECTIOUS DISEASE: Trend temperature, WBC and procalcitonin level Follow cultures, deescalate antibiotics as soon as possible. Panculture if new onset fever HEMATOLOGY & COAGULATION: Monitor H&H. Keep Hgb > 7 Transfuse 1 unit of PRBC for Hgb < 7 Transfuse 1 pack of platelets of platelets < 20, 000 Watch for any signs and symptoms of bleeding SKIN: Pressure ulcer prevention per facility protocol Specialty mattress as needed ] ATTESTATION BY PHYSICIAN I have seen and examined the patient. I reviewed the documentation, medical decision making, and treatment plan as noted by the mid-level provider above. I agree with the findings and plan of care. DANIKA HICKS MD, [facility] Sep 02, 2024 08:02
[2024-09-02 08:34] LABS: HEMOGLOBIN A1C 6.4 % (4.0-6.0)
[2024-09-02] MEDS: ZOSYN 3.375GM+NS 50ML 50 ML IV SCH (10:17)
--- NOTE | 2024-09-02 11:08 | NUR ---
DCP Pt awake, alert, oriented x3 lives with spouse. Pt verbalized has a walker to ambulate with and has a ramp available at home. Pt receives hemodialysis at [facility] T[facility], , and Saturdays. Daughter Myla Mccain is who will help her on discharge if needed. Pt anticipates discharge is for home. Addendum: 09/02/24 at 1112 by YOLANDA RUFFIN RN CM Amended: Links added.
[2024-09-02] MEDS ORDERED: FOLI0.8T22 PO (18:41)
[2024-09-02] MEDS ORDERED: NIFE-39 PO (18:41)
[2024-09-02] MEDS ORDERED: CHOL50002 PO ×2 (18:41)
[2024-09-02] MEDS ORDERED: ATOR10 PO (18:41)
[2024-09-02] MEDS ORDERED: FAMO-290 PO (18:41)
[2024-09-02] MEDS ORDERED: ASPI-1005 PO (18:41)
[2024-09-02] MEDS: hydroMORPHone 0.5 MG SYG (0.5MG/0.5ML) IVP PRN (20:25)
--- NOTE | 2024-09-02 22:56 | CONS ---
GENERAL SURGERY CONSULTATION NOTE Date/Time Patient Seen: September 02, 2024 Reason for Consultation: Recurrent Right perirectal abscess History of Present Illness: This is a 54-year-old morbidly obese female well known to our practice who has a history of recurrent right perirectal abscesses. Her last I and D was last summer. She presented to the ER with a five day history of right perirectal pain she has had some fevers and chills. She saw her PCP and was prescribed antibiotics and topical antibiotics. She developed a fever and subsequently went to the ER for further evaluation. CT scan of the abdomen and pelvis showed a recurrent right perirectal abscess measuring 2.6 cm. PAST MEDICAL HISTORY: [ Morbid obesity, diabetes mellitus, hypertension, hyperlipidemia, end-stage renal disease on hemodialysis perirectal abscess ] PAST SURGICAL HISTORY: [I and D of perirectal abscess x2, Lava, left heart catheterization PermCath placement ] PAST SOCIAL HISTORY: [ Patient lives with daughter. Patient denies alcohol tobacco and recreational drug use ] FAMILY HISTORY: [ Hypertension, asthma, hepatic cirrhosis, cardiovascular disease, stroke, diabetes mellitus, Chronic obstructive pulmonary disease ] Coded Allergies: No Known Drug Allergies (Unverified Allergy, 07/21/12) Current Medications Medications (Trade) Dose Ordered Sig/Sherman Route Start Time Stop Time Status Last Admin Dose Admin Famotidine (Pepcid 20mg Vial) 20 mg Q48H IV 09/02/24 04:30 10/02/24 04:29 09/02/24 04:45 20 MG Insulin Human Regular (humuLIN R 100 UNIT/ML 3ML) INSULIN SLIDING SCAL... ACHS SQ 09/02/24 07:30 09/02/24 11:27 DC Insulin Human Regular (humuLIN R 100 UNIT/ML 3ML) INSULIN SLIDING SCAL... ACHS SQ 09/02/24 11:30 10/02/24 11:29 09/02/24 20:21 2 UNIT Piperacillin Sod/ Tazobactam Sod 50 ml @ 12.5 mls/hr Q8H IV 09/02/24 08:00 09/12/24 07:59 09/02/24 16:52 12.5 MLS/HR Vancomycin HCl 250 ml @ 125 mls/hr ONCE IV 09/02/24 04:30 09/02/24 04:37 DC Vancomycin HCl (Vancomycin 750mg) 750 mg TTHSPHD IVPB 09/04/24 16:00 09/14/24 15:59 Vancomycin HCl (Vancomycin Protocol) 1 each AD IV 09/02/24 04:30 09/16/24 04:29 Review of Systems: CONST: [Fevers and chills EYES: [No recent vision problems.] ENT: [No congestion, ear pain, or sore throat.] C/V: [No chest pain, palpitations, or edema.] RESP: [No cough, congestion, wheezing or shortness of breath.] GI: [No abdominal pain, nausea, vomiting, constipation, or diarrhea.] : [No incontinence or dysuria.] SKIN: [Abscess NEURO: [No headache, focal numbness or weakness, dizziness, or seizures.] PSYCH: [No depression or anxiety.] HEME: [No abnormal bruising or bleeding.] LYMPH: [No swollen glands.] Physical Examination: GENERAL: [No acute distress.] HEAD: [Normal with no signs of head trauma.] EYES: [PERRLA, EOMI, conjunctiva and sclera normal.] ENT: [Hearing grossly intact, normal oropharynx.] NECK: [Supple without JVD. There is no tenderness, lymphadenopathy, or masses. No thyromegaly. Normal carotid upstrokes without bruits.] LUNGS: [Clear breath sounds bilaterally. There are right basilar rales one third of the way up the chest. No wheezes, or rhonchi.] HEART: [Normal rate and rhythm. Normal S1 and S2 without mumurs, gallop or rub.] VASC: [Peripheral pulses +2 bilaterally.] ABD: [Bowel sounds normal, soft, nontender, no masses, no organomegaly. No audible bruits.] : Right perirectal abscess noted it has not started draining LYMPH: [No lymphadenopathy noted.] EXT: [No clubbing, cyanosis or edema.] SKIN: [No rashes or lesions noted.] NEURO: [Awake, alert, and oriented x3. No focal sensory or strength deficits noted.] Vital Signs (last 8hr) Date Time Temp Pulse Resp B/P (MAP) Pulse Ox O2 Delivery O2 Flow Rate FiO2 09/02/24 20:00 98.4 96 20 144/69 97 Room Air 09/02/24 19:20 97 Room Air* 0 21 09/02/24 15:53 98.1 94 17 120/56 93 Room Air Laboratory: [ ] Hematology Labs: Test 09/02/24 06:20 Range/Units White Blood Count 13.0 H 4.8-10.8 K/uL Red Blood Count 3.54 L 4.00-5.50 MIL/uL Hemoglobin 10.7 L 12.0-16.0 g/dL Hematocrit 30.8 L 36-48 % Mean Corpuscular Volume 87.0 79-99 fL Mean Corpuscular Hemoglobin 30.2 27.0-33.0 pg Mean Corpuscular Hemoglobin Concent 34.7 32.0-36.0 g/dL Red Cell Distribution Width 12.6 11.0-15.5 % Platelet Count 189 130-400 K/uL Mean Platelet Volume 10.5 7.5-10.5 fL Immature Granulocyte % (Auto) 0.3 0-1 % Neutrophils (%) (Auto) 76.8 40.0-77.0 % Lymphocytes (%) (Auto) 13.8 L 21.0-51.0 % Monocytes (%) (Auto) 8.2 3.0-13.0 % Eosinophils (%) (Auto) 0.5 0.0-8.0 % Basophils (%) (Auto) 0.4 0.0-5.0 % Neutrophils # (Auto) 10.0 H 1.8-7.7 K/uL Lymphocytes # (Auto) 1.8 1.0-4.8 K/uL Monocytes # (Auto) 1.1 H 0.1-1.0 K/uL Eosinophils # (Auto) 0.07 0.00-0.70 K/uL Basophils # (Auto) 0.05 0.00-0.20 K/uL Absolute Immature Granulocyte (auto 0.04 0-1 K/uL Nucleated Red Blood Cells 0.0 0.0-0.19 % Erythrocyte Sedimentation Rate 80 H 0-30 MM/HR Chemistry Labs: Test 09/02/24 19:28 09/02/24 06:20 09/01/24 22:13 Range/Units Whole Blood Glucose 181 H 70-110 MG/DL Sodium Level 137 136-145 mmol/L Potassium Level 3.1 L 3.5-5.1 mmol/L Chloride Level 100 L 101-111 mmol/L Carbon Dioxide Level 29 21-32 mmol/L Blood Urea Nitrogen 20 H 7-18 mg/dL Creatinine 1.9 H 0.5-1.0 mg/dL Glomerular Filtration Rate Calc 31 >90 mL/min Random Glucose 160 H 70-105 mg/dL Hemoglobin A1c 6.4 H 4.0-6.0 % Estimated Average Glucose (eAG) 137 H 70-126 mg/dL Total Calcium 8.6 8.5-10.1 mg/dL Magnesium Level 2.00 1.80-2.40 mg/dL Total Bilirubin 0.5 0.2-1.0 mg/dL Aspartate Amino Transf (AST/SGOT) 20 10-37 U/L Alanine Aminotransferase (ALT/SGPT) 23 12-78 U/L Alkaline Phosphatase 124 50-136 U/L Total Protein 7.3 6.0-8.3 g/dL Albumin 2.8 L 3.5-5.0 g/dL Procalcitonin 0.20 0.05-0.5 ng/mL Lactic Acid Level 1.4 0.8-2.5 mmol/L Total Creatine Kinase 34 # 21-232 U/L Troponin I High Sensitivity 12 4-50 ng/L Diagnostics / Radiology: CT scan of the abdomen and pelvis showed a 2.6 cm right perirectal abscess Assessment: The 54-year-old female with recurrent right perirectal abscess Plan: IV antibiotics We will take to the OR tomorrow for an incision and drainage of the right perirectal abscess. If there is concern about her needing hemodialysis prior to surgery, please inform me and we can postpone it until possibly Tuesday. ELISABETH RICHARD MD Sep 02, 2024 22:56
[2024-09-03] VITALS (7 sets, daily range): BP systolic 98–133; BP diastolic 59–70; PULSE 71–84; RESP 18–24; TEMP 97.7–99.1; O2SAT 94–97
--- NOTE | 2024-09-03 03:23 | NUR ---
nursing note patient alert and oriented times 4. plan of care discussed with her and she verbalized understanding. dr. leonard rounded at 2250. She spoke with the patient and will do an Incision and drainage today in the afternoon. Consent signed. patient has showered. She is npo after midnight. slot supervisor, valentina hurley made aware. Patient has slept about 7 hours tonight. Call light within reach, bed alarm on, 2 side rails up. will continue to monitor patient.
[2024-09-03 05:51] LABS: HEMATOCRIT 31.3 % (36-48); MEAN CORPUSCULAR HEMOGLOBIN 30.6 pg (27.0-33.0); MEAN CORPUSCULAR HGB CONC 35.1 g/dL (32.0-36.0); MEAN CORPUSCULAR VOLUME 86.9 fL (79-99); RED BLOOD CELL COUNT(AUTO) 3.6 MIL/uL (4.00-5.50); RED CELL DISTRIBUTION WIDTH 12.6 % (11.0-15.5); WHITE BLOOD COUNT (AUTO) 12.5 K/uL (4.8-10.8)
[2024-09-03 06:03] LABS: INR 0.97 (0.85-1.15); PROTHROMBIN TIME 10.9 SEC (9.6-11.6)
[2024-09-03 06:04] LABS: PARTIAL THROMBOPLASTIN TIME 27.2 SEC (26.3-35.5)
[2024-09-03 06:12] LABS: CREATININE 1.9 mg/dL (0.5-1.0); MAGNESIUM 2.4 mg/dL (1.80-2.40); POTASSIUM 3.4 mmol/L (3.5-5.1)
--- NOTE | 2024-09-03 10:41 | CONS ---
REFERRING PHYSICIAN: Dr. Ananth Peralta. REASON FOR CONSULTATION: The patient has perirectal abscess, ESRD. HISTORY OF PRESENT ILLNESS: A 54-year-old female who has diabetes mellitus and hypertension. She has history of end-stage renal disease, on dialysis on a Tuesday, , Tuesday schedule. The patient has history of poor compliance with her general medical care. She presented to the hospital with complaints of pain. The patient was found to have a perirectal abscess on CT scan. The patient is to be seen by surgical service. The patient was started on broad spectrum IV antibiotics as well as local wound care and she is being seen in consultation for all the above. PAST MEDICAL HISTORY: Diabetes mellitus, hypertension, hypercholesterolemia, ESRD. SURGICAL HISTORY: I and D of wounds, PermCath. SOCIAL HISTORY: She lives independently. There is no active tobacco use. FAMILY HISTORY: There is no renal disease in the family. ALLERGIES: There are no allergies. MEDICATIONS: Noted. REVIEW OF SYSTEMS: GENERAL: Complained of pain. HEENT: No change in vision. No change in hearing, no nasal discharge, no sore throat. CARDIOVASCULAR: There is no current chest pain or palpitations. PULMONARY: No shortness of breath. GASTROINTESTINAL: She is tolerating a diet. MUSCULOSKELETAL: Complains of weakness. NEUROLOGIC: No history of seizures or focal deficits. PSYCHIATRIC: No history of hallucinations or psychosis. ENDOCRINE: Diabetes mellitus. No history of thyroid disease. HEME: History of anemia. No history of malignancy. PHYSICAL EXAMINATION: VITAL SIGNS: Blood pressure is 115/52, pulse in the 80s. GENERAL: Chronically ill female, much older than appearing. HEENT: Head is atraumatic. Pupils are equal, roving to light. Oropharynx is without exudate. Nares clear. NECK: There is no JVP. There is no thyromegaly. No mass. CARDIOVASCULAR: Regular. There is no S3, S4. No gallop. LUNGS: Coarse with equal thoracic movement. ABDOMEN: Soft, nondistended, nontender. EXTREMITIES: Reveal no clubbing, no cyanosis. NEUROLOGICAL: She is awake. She is alert. She is oriented. SKIN: Reveals no rash or nodules. BACK: There is no CVA tenderness, no back deformities. LABORATORY AND DIAGNOSTIC DATA: Hemoglobin 10, hematocrit 30, white cell count is 13,000. Hemoglobin A1c 6, BUN 20, creatinine 1.9, potassium is 3.1. CT scan does reveal the perirectal abscess. IMPRESSION: 1. Perirectal abscess. 2. Diabetes mellitus. 3. Hypertension. 4. End-stage renal disease. PLAN: The patient has been started on broad-spectrum IV antibiotics. She has persistent leukocytosis. Antibiotics have been adjusted for renal failure. The patient is to be evaluated by surgical service in regards I and D of the wounds. The patient can continue with the dialysis on a Tuesday, , Tuesday schedule. We will continue to follow closely. The patient has been counseled in regards to her compliance. We will follow while in the hospital. The patient with multiple questions, all of which were answered. TID: [id number] RECEIPT: [id number]
--- NOTE | 2024-09-03 13:36 | PN ---
[facility] PROGRESS NOTE Date of Service: Sep 03, 2024 Time of Service: 13:[address] Robles SUBJECTIVE: [09/02 54 year old female admitted for right perirectal abscess, by CT A/P. This is recurrent. She presented in the ED with sepsis with fever of 100.9, now afebrile. We will be trending her WBC and surgeon consulted. We will also consult Infectious Disease due to abscess and antbx stewardship. Patient c/o right perirectal pain. 09/03/24 patient was seen by nurse practitioner and physician during rounding in room 314 lying in the bed. Patient's potassium today is 3.4 and we will receive 40 mEq of potassium. Cost Recorder is on the case for ESRD dialysis. Urine culture blood culture pending. At this moment per ID patient is on vancomycin and Zosyn. Patient was evaluated by surgeon and that is pending I and D. in the meantime the per rectal abscess bursted and RN obtain culture aerobic and anaerobic of the abscess. WBC today is 12.5 , which has improved from the previous days. Urinalysis positive for leukocytosis. Creatinine has improved today is 1.9 BUN 25 GFR 31. We will continue to monitor patient in the meantime. A.m. labs] REVIEW OF SYSTEMS CONSTITUTIONAL: Denies any fevers. Denies chills, or night sweats. No unintentional weight loss reported. NEUROLOGICAL: Denies headache, amaurosis fugax, motor weakness, sensory deficit, vertigo/spinning sensation, gait abnormalities, or tremors. ENT: No hearing loss, otalgia, otorrhea, rhinitis, rhinorrhea, hoarseness, or sore throat. CARDIOVASCULAR: Denies any exertional angina, dyspnea on exertion, orthopnea, paroxysmal nocturnal dyspnea, palpitations, life-threatening arrhythmias, fabio ication. PULMONARY: Denies any shortness of breath, cough, phlegm/sputum, hemoptysis, pleuritic chest pain. SLEEP: Denies morning headaches, daytime somnolence or napping. Denies difficulty falling asleep, staying asleep, waking from sleep. Denies knowledge of snoring. GASTROINTESTINAL: Denies any type of dysphagia to either liquids or solids. Denies nausea, vomiting, pyrosis, early satiety, abdominal pain, diarrhea, constipation, or changes in stool consistency or caliber. Denies coffee-ground emesis, hematemesis, hematochezia, or melanotic stools. GENITOURINARY: Denies frequency, urgency, nocturia, hematuria or incontinence (Storage/Irritative symptoms.) Low urinary stream, straining to void, urinary intermittency or hesitancy, splitting of the voiding stream, terminal dribbling. ENDOCRINOLOGIC: Denies polyuria, polydipsia, polyphagia or heat/cold intolerances. HEMATOLOGIC: Denies thrombophilia/previous clots, or coagulopathy/bleeding disorders. ONCOLOGIC: Denies personal history of malignancy. DERMATOLOGIC: Denies rashes or pruritus. PSYCHIATRIC: Denies any suicidal or homicidal ideation. Denies hallucinations. PHYSICAL EXAM GENERAL APPEARANCE: The patient is awake, alert, and oriented, in no acute cardiopulmonary distress. NEUROLOGICAL: Cranial nerves II-XII grossly intact. Motor is 5/5 in bilateral upper and lower extremities proximal to distal. No sensory deficits. HEENT: Face is symmetric. Pupils are equal and reactive. Extraocular movements are intact. NECK: Supple. No JVD. No thyromegaly. No submental, submandibular, pre- /postauricular, occipital or supraclavicular lymphadenopathy. CHEST: Normal chest expansion. No Telemetry. LUNGS: Absence of any rales, rhonchi or any wheezing. CARDIOVASCULAR: Regular. S1 and S2 normal. No appreciable rubs, murmurs or gallops. ABDOMEN: Morbidly obese Soft, nontender, and nondistended. There is no rebound, voluntary guarding, or rigidity. : Deferred. No Jones. EXTREMITIES: Non-edematous and not cyanotic. No clubbing. Good capillary refill. SKIN: No skin breakdown. Vital Signs (last 8hr) Date Time Temp Pulse Resp B/P (MAP) Pulse Ox O2 Delivery O2 Flow Rate FiO2 09/03/24 12:00 98.1 74 18 116/62 Room Air 09/03/24 08:00 98.1 72 18 126/70 96 Room Air LABS: Laboratory: Test 09/03/24 10:56 09/03/24 05:29 09/03/24 05:25 09/02/24 06:20 Range/Units Whole Blood Glucose 113 H 70-110 MG/DL Serum Test, Qualitative NEGATIVE NEGATIVE White Blood Count 12.5 H 4.8-10.8 K/uL Red Blood Count 3.60 L 4.00-5.50 MIL/uL Hemoglobin 11.0 L 12.0-16.0 g/dL Hematocrit 31.3 L 36-48 % Mean Corpuscular Volume 86.9 79-99 fL Mean Corpuscular Hemoglobin 30.6 27.0-33.0 pg Mean Corpuscular Hemoglobin Concent 35.1 32.0-36.0 g/dL Red Cell Distribution Width 12.6 11.0-15.5 % Platelet Count 209 130-400 K/uL Mean Platelet Volume 11.0 H 7.5-10.5 fL Nucleated Red Blood Cells 0.0 0.0-0.19 % Prothrombin Time 10.9 9.6-11.6 SEC Prothromb Time International Ratio 0.97 0.85-1.15 Activated Partial Thromboplast Time 27.2 26.3-35.5 SEC Sodium Level 139 136-145 mmol/L Potassium Level 3.4 L 3.5-5.1 mmol/L Chloride Level 103 101-111 mmol/L Carbon Dioxide Level 26 21-32 mmol/L Blood Urea Nitrogen 25 H 7-18 mg/dL Creatinine 1.9 H 0.5-1.0 mg/dL Glomerular Filtration Rate Calc 31 >90 mL/min Random Glucose 158 H 70-105 mg/dL Total Calcium 9.0 8.5-10.1 mg/dL Phosphorus Level 5.0 H 2.5-4.9 mg/dL Magnesium Level 2.40 1.80-2.40 mg/dL Immature Granulocyte % (Auto) 0.3 0-1 % Neutrophils (%) (Auto) 76.8 40.0-77.0 % Lymphocytes (%) (Auto) 13.8 L 21.0-51.0 % Monocytes (%) (Auto) 8.2 3.0-13.0 % Eosinophils (%) (Auto) 0.5 0.0-8.0 % Basophils (%) (Auto) 0.4 0.0-5.0 % Neutrophils # (Auto) 10.0 H 1.8-7.7 K/uL Lymphocytes # (Auto) 1.8 1.0-4.8 K/uL Monocytes # (Auto) 1.1 H 0.1-1.0 K/uL Eosinophils # (Auto) 0.07 0.00-0.70 K/uL Basophils # (Auto) 0.05 0.00-0.20 K/uL Absolute Immature Granulocyte (auto 0.04 0-1 K/uL Erythrocyte Sedimentation Rate 80 H 0-30 MM/HR Hemoglobin A1c 6.4 H 4.0-6.0 % Estimated Average Glucose (eAG) 137 H 70-126 mg/dL Total Bilirubin 0.5 0.2-1.0 mg/dL Aspartate Amino Transf (AST/SGOT) 20 10-37 U/L Alanine Aminotransferase (ALT/SGPT) 23 12-78 U/L Alkaline Phosphatase 124 50-136 U/L Total Protein 7.3 6.0-8.3 g/dL Albumin 2.8 L 3.5-5.0 g/dL Procalcitonin 0.20 0.05-0.5 ng/mL Test 09/02/24 01:22 09/01/24 22:13 Range/Units Urine Color YELLOW YELLOW Urine Appearance CLOUDY H CLEAR Urine pH 7.0 5.0-8.0 Urine Specific Bruce 1.027 1.001-1.031 Urine Protein 100 H NEGATIVE mg/dL Urine Glucose (UA) NEGATIVE NEGATIVE mg/dL Urine Ketones NEGATIVE NEGATIVE mg/dL Urine Occult Blood NEGATIVE NEGATIVE Urine Nitrate NEGATIVE NEGATIVE Urine Bilirubin NEGATIVE NEGATIVE mg/dL Urine Urobilinogen 2.0 H 0.2-1.0 mg/dL Urine Leukocyte Esterase 250 H NEGATIVE Hermelindo/uL Urine RBC 11-25 H 0-1 /HPF Urine WBC 26-50 H 0-1 /HPF Urine Squamous Epithelial Cells MANY 0-2 /HPF Urine Bacteria MANY None Seen /HPF Lactic Acid Level 1.4 0.8-2.5 mmol/L Total Creatine Kinase 34 # 21-232 U/L Troponin I High Sensitivity 12 4-50 ng/L Current Medications Medications (Trade) Dose Ordered Sig/Sherman Route PRN Reason Start Time Stop Time Status Last Admin Dose Admin Atorvastatin Calcium (LIPItor 10MG) 10 mg HS PO 09/03/24 21:00 10/03/24 20:59 Dextrose (D50w) 50 ml AD PRN IV HYPOGLYCEMIA PROTOCOL 09/02/24 04:30 09/02/24 11:27 DC Dextrose (D50w) 50 ml AD PRN IV HYPOGLYCEMIA PROTOCOL 09/02/24 11:30 10/02/24 11:29 Famotidine (Pepcid 20mg Vial) 20 mg Q48H IV 09/02/24 04:30 10/02/24 04:29 09/02/24 04:45 20 MG Glucagon (Glucagon 1mg Kit) 1 mg AD PRN IM HYPOGLYCEMIA PROTOCOL 09/02/24 04:30 09/02/24 11:27 DC Glucagon (Glucagon 1mg Kit) 1 mg AD PRN IM HYPOGLYCEMIA PROTOCOL 09/02/24 11:30 10/02/24 11:29 Home Med (Home Medication) (Cholecalciferol (Vitamin D3) (D3-50) 1 CAP) DAILY PO 09/04/24 09:00 10/04/24 08:59 Hydromorphone HCl (DiLAUDid 0.5MG INJ) 0.2 mg Q6H PRN IVP SEVERE PAIN (7-10) 09/02/24 04:30 09/07/24 04:29 09/03/24 04:14 0.2 MG Insulin Human Regular (humuLIN R 100 UNIT/ML 3ML) INSULIN SLIDING SCAL... ACHS SQ 09/02/24 07:30 09/02/24 11:27 DC Insulin Human Regular (humuLIN R 100 UNIT/ML 3ML) INSULIN SLIDING SCAL... ACHS SQ 09/02/24 11:30 10/02/24 11:29 09/02/24 20:21 2 UNIT Miscellaneous Medication (Famotidine ) 1 tab DAILY PO 09/04/24 09:00 09/03/24 10:31 DC Nifedipine (adALAT 30MG) 60 mg DAILY PO 09/04/24 09:00 10/04/24 08:59 Piperacillin Sod/ Tazobactam Sod 50 ml @ 12.5 mls/hr Q8H IV 09/02/24 08:00 09/12/24 07:59 09/03/24 08:01 12.5 MLS/HR Vancomycin HCl 250 ml @ 125 mls/hr ONCE IV 09/02/24 04:30 09/02/24 04:37 DC Vancomycin HCl (Vancomycin 750mg) 750 mg QTUTHSA[DIALYSIS] IVPB 09/04/24 16:00 09/14/24 15:59 Vancomycin HCl (Vancomycin Protocol) 1 each AD IV 09/02/24 04:30 09/16/24 04:29 Vitamin B Complex/ Vit C/Folic Acid (Nephrovite Tablet) 1 cap DAILY PO 09/04/24 09:00 10/04/24 08:59 DIAGNOSTICS / RADIOLOGY: [ ] ASSESSMENT: Sepsis with orgran dysfunction (Tmax 100.9, WBC 13, HR 100, source perirectal abscess), POA Recurrent Right perirectal abscess POA Acute complicated cystitis POA Chronic anemia due to CKD POA End-stage renal disease on hemodialysis POA Uncontrolled diabetes mellitus type 2 with hypoglycemia POA Uncontrolled Hypertension POA Hyperlipidemia POA Electrolyte imbalance hypokalemia 3.4 POA Morbid obesity POA History of I and D of perirectal abscess POA PLAN: Patient remains in medical-surgical floor Patient NPO for I and D with surgeon today Patient is pending I and D with Dr. Gasca 09/03/2024 We will continue Zosyn IV and vancomycin IV for broad-spectrum coverage C/w Famotidine 20 mg IV q.48h for GI prophylaxis C/w insulin sliding scale AC & HS with hypoglycemia protocol C/w prn medication for fever,pain,cough and nausea Labs and radiology reviewed by NEUROPSYCHIATRIST Nephrology consultation for inpatient HD Infectious Disease for rectal abscess Blood culture and urine culture pending A.m. labs Further orders to follow depending on above results Treatment plan discussed with patient and family at the bedside Medications to be reconciled once obtained by patient and/or family and availa ble to be reconciled in computer P.r.n. medication for pain nausea and vomiting Questions were answered We will continue to monitor the patient closely Staff Accountant for disposition Rehab: PT/OT/ST GI: PPI DVT: SCD's Code Status: Full Resuscitation Disposition: TBD Prognosis: Guarded SKIN: Pressure ulcer prevention per facility protocol Specialty mattress as needed ] ATTESTATION BY PHYSICIAN I have seen and examined the patient. I reviewed the documentation, medical decision making, and treatment plan as noted by the mid-level provider above. I agree with the findings and plan of care. Rishabh Robles IV, MD, [facility] [employer] Sep 03, 2024 13:36
--- NOTE | 2024-09-03 15:42 | PN ---
NEPHROLOGY PROGRESS NOTE Date/Time Patient Seen: Sep 03, 2024 SUBJECTIVE: This is a 54-year-old female with a past medical history of End-Stage Renal Disease On Hemodialysis Tuesday, hypertension, diabetes mellitus type 2, hyperlipidemia, and morbid obesity. Patient presented to the emergency room with complaints of perirectal abscess She was found to have perirectal abscess on CT scan. She is pending I&D later today by surgical services. Blood cultures has been negative She continues on antibiotics. Dialysis was last done on Tuesday in the outpatient clinic. Dialysis planned for tomorrow. She was seen in the medical floor, in no acute distress No family at the bedside Prognosis remains guarded REVIEW OF SYSTEMS: GENERAL: Negative for any nausea, vomiting, fevers, chills, or weight loss. NEUROLOGIC: Negative for any blurry vision, blind spots, double vision, facial asymmetry, dysphagia, dysarthria, hemiparesis, hemisensory deficits, vertigo, ataxia. HEENT: Negative for any head trauma, neck trauma, neck stiffness, photophobia, phonophobia, sinusitis, rhinitis. CARDIAC: Negative for any chest pain, dyspnea on exertion, paroxysmal nocturnal dyspnea, peripheral edema. PULMONARY: Negative for any shortness of breath, wheezing, COPD, or TB exposure. GASTROINTESTINAL: Negative for any abdominal pain, nausea, vomiting, bright red blood per rectum, melena. GENITOURINARY: Negative for any dysuria, hematuria, incontinence. INTEGUMENTARY: Negative for any rashes, cuts, insect bites. RHEUMATOLOGIC: Negative for any joint pains, photosensitive rashes, history of vasculitis or kidney problems. HEMATOLOGIC: Negative for any abnormal bruising, frequent infections or bleeding. Vital Signs (last 8hr) Date Time Temp Pulse Resp B/P (MAP) Pulse Ox O2 Delivery O2 Flow Rate FiO2 09/03/24 12:00 98.1 74 18 116/62 Room Air 09/03/24 08:00 98.1 72 18 126/70 96 Room Air PHYSICAL EXAM: GENERAL: Alert and oriented x 3. No acute distress. Well-nourished. EYES: EOMI. Anicteric. HENT: Moist mucous membranes. No scleral icterus. No cervical lymphadenopathy. LUNGS: Clear to auscultation bilaterally. No accessory muscle use. CARDIOVASCULAR: Regular rate and rhythm. No murmur. No JVD. ABDOMEN: Soft, non-tender and non-distended. No palpable masses. EXTREMITIES: No edema. Non-tender.?SKIN: No rashes or lesions. Warm. NEUROLOGIC: No focal neurological deficits. CN II-XII grossly intact, but not individually tested. PSYCHIATRIC: Cooperative. Appropriate mood and affect. Current Medications Medications (Trade) Dose Ordered Sig/Sherman Route PRN Reason Start Time Stop Time Status Last Admin Dose Admin Atorvastatin Calcium (LIPItor 10MG) 10 mg HS PO 09/03/24 21:00 10/03/24 20:59 Dextrose (D50w) 50 ml AD PRN IV HYPOGLYCEMIA PROTOCOL 09/02/24 04:30 09/02/24 11:27 DC Dextrose (D50w) 50 ml AD PRN IV HYPOGLYCEMIA PROTOCOL 09/02/24 11:30 10/02/24 11:29 Famotidine (Pepcid 20mg Vial) 20 mg Q48H IV 09/02/24 04:30 10/02/24 04:29 09/02/24 04:45 20 MG Glucagon (Glucagon 1mg Kit) 1 mg AD PRN IM HYPOGLYCEMIA PROTOCOL 09/02/24 04:30 09/02/24 11:27 DC Glucagon (Glucagon 1mg Kit) 1 mg AD PRN IM HYPOGLYCEMIA PROTOCOL 09/02/24 11:30 10/02/24 11:29 Home Med (Home Medication) (Cholecalciferol (Vitamin D3) (D3-50) 1 CAP) DAILY PO 09/04/24 09:00 10/04/24 08:59 Hydromorphone HCl (DiLAUDid 0.5MG INJ) 0.2 mg Q6H PRN IVP SEVERE PAIN (7-10) 09/02/24 04:30 09/07/24 04:29 09/03/24 04:14 0.2 MG Insulin Human Regular (humuLIN R 100 UNIT/ML 3ML) INSULIN SLIDING SCAL... ACHS SQ 09/02/24 07:30 09/02/24 11:27 DC Insulin Human Regular (humuLIN R 100 UNIT/ML 3ML) INSULIN SLIDING SCAL... ACHS SQ 09/02/24 11:30 10/02/24 11:29 09/02/24 20:21 2 UNIT Miscellaneous Medication (Famotidine ) 1 tab DAILY PO 09/04/24 09:00 09/03/24 10:31 DC Nifedipine (adALAT 30MG) 60 mg DAILY PO 09/04/24 09:00 10/04/24 08:59 Piperacillin Sod/ Tazobactam Sod 50 ml @ 12.5 mls/hr Q8H IV 09/02/24 08:00 09/12/24 07:59 09/03/24 08:01 12.5 MLS/HR Vancomycin HCl 250 ml @ 125 mls/hr ONCE IV 09/02/24 04:30 09/02/24 04:37 DC Vancomycin HCl (Vancomycin 750mg) 750 mg QTUTHSA[DIALYSIS] IVPB 09/04/24 16:00 09/14/24 15:59 Vancomycin HCl (Vancomycin Protocol) 1 each AD IV 09/02/24 04:30 09/16/24 04:29 Vitamin B Complex/ Vit C/Folic Acid (Nephrovite Tablet) 1 cap DAILY PO 09/04/24 09:00 10/04/24 08:59 LABORATORY: [ ] Hematology Labs: Test 09/03/24 05:25 09/02/24 06:20 Range/Units White Blood Count 12.5 H 4.8-10.8 K/uL Red Blood Count 3.60 L 4.00-5.50 MIL/uL Hemoglobin 11.0 L 12.0-16.0 g/dL Hematocrit 31.3 L 36-48 % Mean Corpuscular Volume 86.9 79-99 fL Mean Corpuscular Hemoglobin 30.6 27.0-33.0 pg Mean Corpuscular Hemoglobin Concent 35.1 32.0-36.0 g/dL Red Cell Distribution Width 12.6 11.0-15.5 % Platelet Count 209 130-400 K/uL Mean Platelet Volume 11.0 H 7.5-10.5 fL Nucleated Red Blood Cells 0.0 0.0-0.19 % Immature Granulocyte % (Auto) 0.3 0-1 % Neutrophils (%) (Auto) 76.8 40.0-77.0 % Lymphocytes (%) (Auto) 13.8 L 21.0-51.0 % Monocytes (%) (Auto) 8.2 3.0-13.0 % Eosinophils (%) (Auto) 0.5 0.0-8.0 % Basophils (%) (Auto) 0.4 0.0-5.0 % Neutrophils # (Auto) 10.0 H 1.8-7.7 K/uL Lymphocytes # (Auto) 1.8 1.0-4.8 K/uL Monocytes # (Auto) 1.1 H 0.1-1.0 K/uL Eosinophils # (Auto) 0.07 0.00-0.70 K/uL Basophils # (Auto) 0.05 0.00-0.20 K/uL Absolute Immature Granulocyte (auto 0.04 0-1 K/uL Erythrocyte Sedimentation Rate 80 H 0-30 MM/HR Chemistry Labs: Test 09/03/24 10:56 09/03/24 05:29 09/03/24 05:25 09/02/24 06:20 Range/Units Whole Blood Glucose 113 H 70-110 MG/DL Serum Test, Qualitative NEGATIVE NEGATIVE Sodium Level 139 136-145 mmol/L Potassium Level 3.4 L 3.5-5.1 mmol/L Chloride Level 103 101-111 mmol/L Carbon Dioxide Level 26 21-32 mmol/L Blood Urea Nitrogen 25 H 7-18 mg/dL Creatinine 1.9 H 0.5-1.0 mg/dL Glomerular Filtration Rate Calc 31 >90 mL/min Random Glucose 158 H 70-105 mg/dL Total Calcium 9.0 8.5-10.1 mg/dL Phosphorus Level 5.0 H 2.5-4.9 mg/dL Magnesium Level 2.40 1.80-2.40 mg/dL Hemoglobin A1c 6.4 H 4.0-6.0 % Estimated Average Glucose (eAG) 137 H 70-126 mg/dL Total Bilirubin 0.5 0.2-1.0 mg/dL Aspartate Amino Transf (AST/SGOT) 20 10-37 U/L Alanine Aminotransferase (ALT/SGPT) 23 12-78 U/L Alkaline Phosphatase 124 50-136 U/L Total Protein 7.3 6.0-8.3 g/dL Albumin 2.8 L 3.5-5.0 g/dL Procalcitonin 0.20 0.05-0.5 ng/mL Test 09/01/24 22:13 Range/Units Lactic Acid Level 1.4 0.8-2.5 mmol/L Total Creatine Kinase 34 # 21-232 U/L Troponin I High Sensitivity 12 4-50 ng/L Coagulation Labs: Test 09/03/24 05:25 Range/Units Prothrombin Time 10.9 9.6-11.6 SEC Prothromb Time International Ratio 0.97 0.85-1.15 Activated Partial Thromboplast Time 27.2 26.3-35.5 SEC DIAGNOSTICS / RADIOLOGY: REASON: perirectal abscess ORDERING PHYSICIAN: JOHANNE DALEY MD PROCEDURE: ABD PEL WO - CT ABDOMEN/PELVIS W/O CONTRAST CT ABDOMEN/PELVIS W/O CONTRAST HISTORY: Perirectal abscess COMPARISON: 01/09/2022 TECHNIQUE: Multiple sequential axial images of the abdomen and pelvis were obtained from the dome of the diaphragm through symphysis pubis. Patient was not given contrast through intravenous route. Oral contrast was not given. FINDINGS: No pleural effusion is seen bilaterally. There is no evidence of parenchymal disease or pulmonary nodule of the visualized lower lungs. Degenerative changes of the thoracolumbar spine are present. The heart is not enlarged. Coronary arterial calcifications are seen. Liver is enlarged with fatty changes measuring 18 cm. Post cholecystectomy changes are seen. The liver, spleen, adrenal glands and pancreas are unremarkable. There is no evidence of hydronephrosis bilaterally. No evidence of renal stone is seen. Fecal material is seen in the colon. There are normal size retroperitoneal and mesenteric lymph nodes. No ascites is seen. Appendix is not seen limiting evaluation. There is right perirectal fat stranding. There is small right perirectal abscess measuring 2.6 cm. Pelvic sidewalls are symmetric bilaterally. Bladder is poorly distended. IMPRESSION: 1. There is right perirectal fat stranding. There is small right perirectal abscess measuring 2.[address] was performed with one or more following dose reduction techniques: automated exposure control, adjustment of the mA and kv according to patient's size, or use of a iterative reconstruction technique. DICTATED BY: SUZY ERNANDEZ MD DATE: 09/01/24 9710 ASSESSMENT: Hypokalemia Chronic anemia End-stage renal disease Sepsis Recurrent right perirectal abscess Acute complicated cystitis Morbid obesity Uncontrolled Hypertension Uncontrolled Diabetes mellitus type 2 Hyperlipidemia PLAN: Labs and Diagnostics/ Radiology personally reviewed and interpreted by myself and supervising physician We have reviewed dialysis and external records in detail Continue dialysis schedule Tuesday Pending I&D later today 1.5 L fluid restriction Continue to monitor H&H Epogen on dialysis days, as needed Continue with frequent monitoring of renal function, anemia, and electrolytes Order CBC, BMP, and electrolytes in the morning May use Dilaudid 0.5 mg IV every 6 hours as needed for severe pain Monitor blood pressure adjust medication doses as needed Maintain normotensive state Strict intake, output, and daily weight should be monitored Please renally adjust medications. Avoid nephrotoxics and nonsteroidal drugs. We will continue to monitor the patient closely We have discussed with the other team physicians in detail about the care plan Thank you for allowing us to participate in the care of this patient ATTESTATION BY PHYSICIAN I have seen and examined the patient. I reviewed the documentation, medical decision making, and treatment plan as noted by the mid-level provider above. I agree with the findings and plan of care. MADHURI GUSTAFSON MD, [facility] Sep 03, 2024 15:42
[2024-09-03] MEDS: atorVAStatin 10 MG TABLET PO SCH (20:07)
--- NOTE | 2024-09-03 20:45 | NUR ---
Nursing Note Received order from Ricardo BARTON for tylenol 650 q6hr PRN pain
[2024-09-03] MEDS: acetaMINOPHEN 325 MG TAB PO PRN (21:08)
[2024-09-04] VITALS (20 sets, daily range): BP systolic 107–142; BP diastolic 60–78; PULSE 69–80; RESP 16–24; TEMP 97.4–97.8; O2SAT 96
[2024-09-04 05:08] LABS: BASOPHILS # (AUTO) 0.07 K/uL (0.00-0.20); BASOPHILS % (AUTO) 0.9 % (0.0-5.0); EOSINOPHILS # (AUTO) 0.55 K/uL (0.00-0.70); EOSINOPHILS % (AUTO) 7.1 % (0.0-8.0); HEMATOCRIT 31.5 % (36-48); IMMATURE GRANULOCYTE ABSOLUTE 0.08 K/uL (0-1); LYMPHOCYTES # (AUTO) 2.2 K/uL (1.0-4.8); LYMPHOCYTES % (AUTO) 28.3 % (21.0-51.0); MEAN CORPUSCULAR HEMOGLOBIN 29.8 pg (27.0-33.0); MEAN CORPUSCULAR VOLUME 87.7 fL (79-99); MONOCYTES # (AUTO) 0.6 K/uL (0.1-1.0); MONOCYTES % (AUTO) 7.6 % (3.0-13.0); NEUTROPHILS # (AUTO) 4.3 K/uL (1.8-7.7); NEUTROPHILS % (AUTO) 55.1 % (40.0-77.0); PLATELET COUNT (AUTO) 214 K/uL (130-400); RED BLOOD CELL COUNT(AUTO) 3.59 MIL/uL (4.00-5.50); RED CELL DISTRIBUTION WIDTH 12.7 % (11.0-15.5); WHITE BLOOD COUNT (AUTO) 7.7 K/uL (4.8-10.8)
[2024-09-04 05:23] LABS: ALBUMIN 2.5 g/dL (3.5-5.0); BILIRUBIN,TOTAL 0.3 mg/dL (0.2-1.0); CREATININE 1.8 mg/dL (0.5-1.0); MAGNESIUM 2.2 mg/dL (1.80-2.40); POTASSIUM 3.6 mmol/L (3.5-5.1); TOTAL PROTEIN, SERUM 7.3 g/dL (6.0-8.3)
--- NOTE | 2024-09-04 06:02 | NUR ---
Nursing Note Spoke with Eva from OR. Pt was still on schedule for I&D but was informed during report yesterday pt was canceled and pt refused procedure after abscess popped. I clarified with pt that she did not want the procedure and pt stated she did not want the procedure. I informed Eva in OR.
[2024-09-04] MEDS: Vitamin B Complex/Vit C/Folic Acid PO SCH (08:51)
[2024-09-04] MEDS: CHOLECALCIFEROL PO SCH (08:52)
[2024-09-04] MEDS ORDERED: NON-FORMULARY MEDICATION 1 EACH (Famotidine 1 TAB) PO SCH (09:00)
--- NOTE | 2024-09-04 09:46 | PN ---
patient declined surgical intervention this am because her abscess has opened up and started draining. will sign off and please recall prn (can call Dr. Joiner because he has i and d her before in the past) Dr. Elisabeth Richard Vitals/Labs Vital Signs Date Time Temp Pulse Resp B/P (MAP) Pulse Ox O2 Delivery O2 Flow Rate FiO2 09/04/24 08:00 97.3 72 18 115/68 96 Room Air 09/03/24 20:07 0 21 Laboratory Tests 09/04/24 04:50 Medications Current Medications Vancomycin HCl 1 gm ONCE ONCE IV Last administered on 09/02/24at 00:45; Start 09/02/24 at 00:30; Stop 09/02/24 at 00:31; Status DC Piperacillin Sod/ Tazobactam Sod 3.375 gm ONCE ONCE IV Last administered on 09/02/24at 00:15; Start 09/02/24 at 00:00; Stop 09/02/24 at 00:02; Status DC Acetaminophen 650 mg ONCE ONCE PO Last administered on 09/02/24at 03:30; Start 09/02/24 at 03:30; Stop 09/02/24 at 03:31; Status DC Vancomycin HCl 250 ml @ 125 mls/hr ONCE IV; Start 09/02/24 at 04:30; Stop 09/02/24 at 04:37; Status DC Piperacillin Sod/ Tazobactam Sod 50 ml @ 12.5 mls/hr Q8H IV Last administered on 09/03/24at 23:14; Start 09/02/24 at 08:00; Stop 09/12/24 at 07:59 Famotidine 20 mg Q48H IV Last administered on 09/02/24at 04:45; Start 09/02/24 at 04:30; Stop 10/02/24 at 04:29 Hydromorphone HCl 0.2 mg Q6H PRN IVP Last administered on 09/03/24at 04:14; Start 09/02/24 at 04:30; Stop 09/07/24 at 04:29 Insulin Human Regular INSULIN SLIDING SCAL... ACHS SQ; Start 09/02/24 at 07:30; Stop 09/02/24 at 11:27; Status DC Dextrose 50 ml AD PRN IV; Start 09/02/24 at 04:30; Stop 09/02/24 at 11:27; Status DC Glucagon 1 mg AD PRN IM; Start 09/02/24 at 04:30; Stop 09/02/24 at 11:27; Status DC Vancomycin HCl 1 each AD IV; Start 09/02/24 at 04:30; Stop 09/16/24 at 04:29 Vancomycin HCl 750 mg QTUTHSA[DIALYSIS] IVPB; Start 09/04/24 at 16:00; Stop 09/14/24 at 15:59 Dextrose 50 ml AD PRN IV; Start 09/02/24 at 11:30; Stop 10/02/24 at 11:29 Glucagon 1 mg AD PRN IM; Start 09/02/24 at 11:30; Stop 10/02/24 at 11:29 Insulin Human Regular INSULIN SLIDING SCAL... ACHS SQ Last administered on 09/02/24at 20:21; Start 09/02/24 at 11:30; Stop 10/02/24 at 11:29 Atorvastatin Calcium 10 mg HS PO Last administered on 09/03/24at 20:07; Start 09/03/24 at 21:00; Stop 10/03/24 at 20:59 Home Med (Cholecalciferol (Vitamin D3) (D3-50) 1 CAP) DAILY PO; Start 09/04/24 at 09:00; Stop 10/04/24 at 08:59 Miscellaneous Medication 1 tab DAILY PO; Start 09/04/24 at 09:00; Stop 09/03/24 at 10:31; Status DC Vitamin B Complex/ Vit C/Folic Acid 1 cap DAILY PO Last administered on 09/04/24at 08:51; Start 09/04/24 at 09:00; Stop 10/04/24 at 08:59 Nifedipine 60 mg DAILY PO; Start 09/04/24 at 09:00; Stop 10/04/24 at 08:59 Acetaminophen 650 mg Q6H PRN PO Last administered on 09/03/24at 21:08; Start 09/03/24 at 21:00; Stop 10/03/24 at 20:59 ELISABETH RICHARD MD Sep 04, 2024 09:46
[2024-09-04] MEDS: 0.9%NACL 1000ML 1,000 ML IV SCH (15:00)
[2024-09-04] MEDS: nifeDIPine ER 30 MG TAB PO SCH (17:41)
[2024-09-04] MEDS: HEParin 5,000 UNIT VIAL IRRIG SCH (18:24)
--- NOTE | 2024-09-04 20:20 | PN ---
NEPHROLOGY NOTE SUBJECTIVE: The patient has been evaluated, seen for dialysis, seen several times. OBJECTIVE: CHEST: Shows crackles. EXTREMITIES: With edema. NEUROLOGIC: Unchanged. PROBLEMS: Renal failure and anemia. PLAN: Plan is to continue monitoring of renal function. Continue monitoring of electrolytes. Intake, output, weight will be monitored. Nonsteroidal drugs will be avoided. Dose of medicine will be adjusted. The patient was evaluated and seen for dialysis and seen several times. I have discussed with other team members in detail. Overall condition remained poor and guarded. I have discussed with other team members. The patient has a buttock abscess, but refusing I and D as she thinks it has already ruptured on its own. Thank you for this patient. TID: [id number] RECEIPT: [id number]
--- NOTE | 2024-09-04 20:23 | PN ---
SUBJECTIVE: The patient has been evaluated and seen for dialysis and seen multiple times. The patient is quite ill. The patient has no other associated finding. No other aggravating or relieving factor. The patient is weak. PHYSICAL EXAMINATION: GENERAL: Obese, lying in bed. VITAL SIGNS: Blood pressure is 111/67, pulse 78, respiratory rate 16. HEENT: Head is atraumatic, normocephalic. Pupils are round and reactive. Sclerae are anicteric. Conjunctivae are not pale. Oral mucosa is not dry. LABORATORY DATA: Labs have been reviewed. Old records reviewed. PROBLEMS: Renal failure, anemia, multiple other comorbidities. PLAN: Plan is to continue dialysis support. Continue monitoring of renal function. Continue monitoring of electrolytes. Intake, output, weight, and overall status to be monitored. I have reviewed the patient with all the labs and we will continue followup. The patient was evaluated and seen for dialysis and seen several times. Condition is critical and guarded. Thank you for this patient. TID: [id number] RECEIPT: [id number]
[2024-09-04] MEDS: VANCOMYCIN 750MG VIAL IVPB SCH (20:28)
[2024-09-05] VITALS (9 sets, daily range): BP systolic 93–130; BP diastolic 41–77; PULSE 69–88; RESP 18–20; TEMP 97.4–98.1; O2SAT 97
--- NOTE | 2024-09-05 11:30 | NUR ---
BLOOD GLUCOSE 139. NO INSULIN COVERAGE NEEDED AT THIS TIME.
--- NOTE | 2024-09-05 11:49 | PN ---
NEPHROLOGY PROGRESS NOTE Date/Time Patient Seen: Sep 05, 2024 Reason for Consultation: 11:48 SUBJECTIVE: This is a 54-year-old female with a past medical history of End-Stage Renal Disease On Hemodialysis Tuesday, hypertension, diabetes mellitus type 2, hyperlipidemia, and morbid obesity. Patient presented to the emergency room with complaints of perirectal abscess She was found to have perirectal abscess on CT scan. Blood cultures has been negative, continues on antibiotics. Pending wound cultures Dialysis planned for tomorrow. She was seen in the medical floor, in no acute distress No family at the bedside Prognosis remains guarded REVIEW OF SYSTEMS: GENERAL: Negative for any nausea, vomiting, fevers, chills, or weight loss. NEUROLOGIC: Negative for any blurry vision, blind spots, double vision, facial asymmetry, dysphagia, dysarthria, hemiparesis, hemisensory deficits, vertigo, ataxia. HEENT: Negative for any head trauma, neck trauma, neck stiffness, photophobia, phonophobia, sinusitis, rhinitis. CARDIAC: Negative for any chest pain, dyspnea on exertion, paroxysmal nocturnal dyspnea, peripheral edema. PULMONARY: Negative for any shortness of breath, wheezing, COPD, or TB exposure. GASTROINTESTINAL: Negative for any abdominal pain, nausea, vomiting, bright red blood per rectum, melena. GENITOURINARY: Negative for any dysuria, hematuria, incontinence. INTEGUMENTARY: Negative for any rashes, cuts, insect bites. RHEUMATOLOGIC: Negative for any joint pains, photosensitive rashes, history of vasculitis or kidney problems. HEMATOLOGIC: Negative for any abnormal bruising, frequent infections or bleeding. Vital Signs (last 8hr) Date Time Temp Pulse Resp B/P (MAP) Pulse Ox O2 Delivery O2 Flow Rate FiO2 09/03/24 12:00 98.1 74 18 116/62 Room Air 09/03/24 08:00 98.1 72 18 126/70 96 Room Air PHYSICAL EXAM: GENERAL: Alert and oriented x 3. No acute distress. Well-nourished. EYES: EOMI. Anicteric. HENT: Moist mucous membranes. No scleral icterus. No cervical lymphadenopathy. LUNGS: Clear to auscultation bilaterally. No accessory muscle use. CARDIOVASCULAR: Regular rate and rhythm. No murmur. No JVD. ABDOMEN: Soft, non-tender and non-distended. No palpable masses. EXTREMITIES: No edema. Non-tender.?SKIN: No rashes or lesions. Warm. NEUROLOGIC: No focal neurological deficits. CN II-XII grossly intact, but not individually tested. PSYCHIATRIC: Cooperative. Appropriate mood and affect. Current Medications Medications (Trade) Dose Ordered Sig/Sherman Route PRN Reason Start Time Stop Time Status Last Admin Dose Admin Atorvastatin Calcium (LIPItor 10MG) 10 mg HS PO 09/03/24 21:00 10/03/24 20:59 Dextrose (D50w) 50 ml AD PRN IV HYPOGLYCEMIA PROTOCOL 09/02/24 04:30 09/02/24 11:27 DC Dextrose (D50w) 50 ml AD PRN IV HYPOGLYCEMIA PROTOCOL 09/02/24 11:30 10/02/24 11:29 Famotidine (Pepcid 20mg Vial) 20 mg Q48H IV 09/02/24 04:30 10/02/24 04:29 09/02/24 04:45 20 MG Glucagon (Glucagon 1mg Kit) 1 mg AD PRN IM HYPOGLYCEMIA PROTOCOL 09/02/24 04:30 09/02/24 11:27 DC Glucagon (Glucagon 1mg Kit) 1 mg AD PRN IM HYPOGLYCEMIA PROTOCOL 09/02/24 11:30 10/02/24 11:29 Home Med (Home Medication) (Cholecalciferol (Vitamin D3) (D3-50) 1 CAP) DAILY PO 09/04/24 09:00 10/04/24 08:59 Hydromorphone HCl (DiLAUDid 0.5MG INJ) 0.2 mg Q6H PRN IVP SEVERE PAIN (7-10) 09/02/24 04:30 09/07/24 04:29 09/03/24 04:14 0.2 MG Insulin Human Regular (humuLIN R 100 UNIT/ML 3ML) INSULIN SLIDING SCAL... ACHS SQ 09/02/24 07:30 09/02/24 11:27 DC Insulin Human Regular (humuLIN R 100 UNIT/ML 3ML) INSULIN SLIDING SCAL... ACHS SQ 09/02/24 11:30 10/02/24 11:29 09/02/24 20:21 2 UNIT Miscellaneous Medication (Famotidine ) 1 tab DAILY PO 09/04/24 09:00 09/03/24 10:31 DC Nifedipine (adALAT 30MG) 60 mg DAILY PO 09/04/24 09:00 10/04/24 08:59 Piperacillin Sod/ Tazobactam Sod 50 ml @ 12.5 mls/hr Q8H IV 09/02/24 08:00 09/12/24 07:59 09/03/24 08:01 12.5 MLS/HR Vancomycin HCl 250 ml @ 125 mls/hr ONCE IV 09/02/24 04:30 09/02/24 04:37 DC Vancomycin HCl (Vancomycin 750mg) 750 mg QTUTHSA[DIALYSIS] IVPB 09/04/24 16:00 09/14/24 15:59 Vancomycin HCl (Vancomycin Protocol) 1 each AD IV 09/02/24 04:30 09/16/24 04:29 Vitamin B Complex/ Vit C/Folic Acid (Nephrovite Tablet) 1 cap DAILY PO 09/04/24 09:00 10/04/24 08:59 LABORATORY: [ ] Hematology Labs: Test 09/04/24 04:50 Range/Units White Blood Count 7.7 # 4.8-10.8 K/uL Red Blood Count 3.59 L 4.00-5.50 MIL/uL Hemoglobin 10.7 L 12.0-16.0 g/dL Hematocrit 31.5 L 36-48 % Mean Corpuscular Volume 87.7 79-99 fL Mean Corpuscular Hemoglobin 29.8 27.0-33.0 pg Mean Corpuscular Hemoglobin Concent 34.0 32.0-36.0 g/dL Red Cell Distribution Width 12.7 11.0-15.5 % Platelet Count 214 130-400 K/uL Mean Platelet Volume 10.5 7.5-10.5 fL Immature Granulocyte % (Auto) 1.0 0-1 % Neutrophils (%) (Auto) 55.1 40.0-77.0 % Lymphocytes (%) (Auto) 28.3 21.0-51.0 % Monocytes (%) (Auto) 7.6 3.0-13.0 % Eosinophils (%) (Auto) 7.1 0.0-8.0 % Basophils (%) (Auto) 0.9 0.0-5.0 % Neutrophils # (Auto) 4.3 1.8-7.7 K/uL Lymphocytes # (Auto) 2.2 1.0-4.8 K/uL Monocytes # (Auto) 0.6 0.1-1.0 K/uL Eosinophils # (Auto) 0.55 0.00-0.70 K/uL Basophils # (Auto) 0.07 0.00-0.20 K/uL Absolute Immature Granulocyte (auto 0.08 0-1 K/uL Nucleated Red Blood Cells 0.0 0.0-0.19 % Chemistry Labs: Test 09/05/24 11:29 09/04/24 04:50 Range/Units Whole Blood Glucose 139 H 70-110 MG/DL Sodium Level 140 136-145 mmol/L Potassium Level 3.6 3.5-5.1 mmol/L Chloride Level 104 101-111 mmol/L Carbon Dioxide Level 27 21-32 mmol/L Blood Urea Nitrogen 29 H 7-18 mg/dL Creatinine 1.8 H 0.5-1.0 mg/dL Glomerular Filtration Rate Calc 33 >90 mL/min Random Glucose 132 H 70-105 mg/dL Total Calcium 8.7 8.5-10.1 mg/dL Magnesium Level 2.20 1.80-2.40 mg/dL Total Bilirubin 0.3 0.2-1.0 mg/dL Aspartate Amino Transf (AST/SGOT) 28 10-37 U/L Alanine Aminotransferase (ALT/SGPT) 36 12-78 U/L Alkaline Phosphatase 131 50-136 U/L Total Protein 7.3 6.0-8.3 g/dL Albumin 2.5 L 3.5-5.0 g/dL DIAGNOSTICS / RADIOLOGY: REASON: perirectal abscess ORDERING PHYSICIAN: JOHANNE DALEY MD PROCEDURE: ABD PEL WO - CT ABDOMEN/PELVIS W/O CONTRAST CT ABDOMEN/PELVIS W/O CONTRAST HISTORY: Perirectal abscess COMPARISON: 01/09/2022 TECHNIQUE: Multiple sequential axial images of the abdomen and pelvis were obtained from the dome of the diaphragm through symphysis pubis. Patient was not given contrast through intravenous route. Oral contrast was not given. FINDINGS: No pleural effusion is seen bilaterally. There is no evidence of parenchymal disease or pulmonary nodule of the visualized lower lungs. Degenerative changes of the thoracolumbar spine are present. The heart is not enlarged. Coronary arterial calcifications are seen. Liver is enlarged with fatty changes measuring 18 cm. Post cholecystectomy changes are seen. The liver, spleen, adrenal glands and pancreas are unremarkable. There is no evidence of hydronephrosis bilaterally. No evidence of renal stone is seen. Fecal material is seen in the colon. There are normal size retroperitoneal and mesenteric lymph nodes. No ascites is seen. Appendix is not seen limiting evaluation. There is right perirectal fat stranding. There is small right perirectal abscess measuring 2.6 cm. Pelvic sidewalls are symmetric bilaterally. Bladder is poorly distended. IMPRESSION: 1. There is right perirectal fat stranding. There is small right perirectal abscess measuring 2.[address] was performed with one or more following dose reduction techniques: automated exposure control, adjustment of the mA and kv according to patient's size, or use of a iterative reconstruction technique. DICTATED BY: SUZY ERNANDEZ MD DATE: 09/01/242320 ASSESSMENT: Hypokalemia Chronic anemia End-stage renal disease Sepsis Recurrent right perirectal abscess Acute complicated cystitis Morbid obesity Uncontrolled Hypertension Uncontrolled Diabetes mellitus type 2 Hyperlipidemia PLAN: Labs and Diagnostics/ Radiology personally reviewed and interpreted by myself and supervising physician We have reviewed dialysis and external records in detail Continue dialysis schedule Tuesday Pending wound cultures 1.5 L fluid restriction Continue to monitor H&H Epogen on dialysis days, as needed Continue with frequent monitoring of renal function, anemia, and electrolytes Order CBC, BMP, and electrolytes in the morning May use Dilaudid 0.5 mg IV every 6 hours as needed for severe pain Monitor blood pressure adjust medication doses as needed Maintain normotensive state Strict intake, output, and daily weight should be monitored Please renally adjust medications. Avoid nephrotoxics and nonsteroidal drugs. We will continue to monitor the patient closely We have discussed with the other team physicians in detail about the care plan ATTESTATION BY PHYSICIAN I have seen and examined the patient. I reviewed the documentation, medical decision making, and treatment plan as noted by the mid-level provider above. I agree with the findings and plan of care. MADHURI GUSTAFSON MD, [facility] P[facility] TANNER Sep 05, 2024 11:49
--- NOTE | 2024-09-05 12:16 | PN ---
[facility] PROGRESS NOTE Date of Service: Sep 05, 2024 Time of Service: 12:[address] Robles SUBJECTIVE: [09/02 54 year old female admitted for right perirectal abscess, by CT A/P. This is recurrent. She presented in the ED with sepsis with fever of 100.9, now afebrile. We will be trending her WBC and surgeon consulted. We will also consult Infectious Disease due to abscess and antbx stewardship. Patient c/o right perirectal pain. 09/03/24 patient was seen by nurse practitioner and physician during rounding in room 314 lying in the bed. Patient's potassium today is 3.4 and we will receive 40 mEq of potassium. Hand Gluer And Slicer is on the case for ESRD dialysis. Urine culture blood culture pending. At this moment per ID patient is on vancomycin and Zosyn. Patient was evaluated by surgeon and that is pending I and D. in the meantime the per rectal abscess bursted and RN obtain culture aerobic and anaerobic of the abscess. WBC today is 12.5 , which has improved from the previous days. Urinalysis positive for leukocytosis. Creatinine has improved today is 1.9 BUN 25 GFR 31. We will continue to monitor patient in the meantime. A.m. labs 09/04 patient was seen by nurse practitioner physician during rounding in room 312. Patient was seen by Dr. Gasca and is signing off at this moment. Patient continues to be on vancomycin Zosyn. Final blood culture negative x2. Urine culture final negative. We are still pending final culture of perirectal abscess. We will continue to monitor patient in the meantime. Continue ESRD as scheduled for dialysis. A.m. labs] REVIEW OF SYSTEMS CONSTITUTIONAL: Denies any fevers. Denies chills, or night sweats. No unintentional weight loss reported. NEUROLOGICAL: Denies headache, amaurosis fugax, motor weakness, sensory deficit, vertigo/spinning sensation, gait abnormalities, or tremors. ENT: No hearing loss, otalgia, otorrhea, rhinitis, rhinorrhea, hoarseness, or sore throat. CARDIOVASCULAR: Denies any exertional angina, dyspnea on exertion, orthopnea, paroxysmal nocturnal dyspnea, palpitations, life-threatening arrhythmias, claudication. PULMONARY: Denies any shortness of breath, cough, phlegm/sputum, hemoptysis, pleuritic chest pain. SLEEP: Denies morning headaches, daytime somnolence or napping. Denies difficulty falling asleep, staying asleep, waking from sleep. Denies knowledge of snoring. GASTROINTESTINAL: Denies any type of dysphagia to either liquids or solids. Denies nausea, vomiting, pyrosis, early satiety, abdominal pain, diarrhea, constipation, or changes in stool consistency or caliber. Denies coffee-ground emesis, hematemesis, hematochezia, or melanotic stools. GENITOURINARY: Denies frequency, urgency, nocturia, hematuria or incontinence (Storage/Irritative symptoms.) Low urinary stream, straining to void, urinary intermittency or hesitancy, splitting of the voiding stream, terminal dribbling. ENDOCRINOLOGIC: Denies polyuria, polydipsia, polyphagia or heat/cold intolerances. HEMATOLOGIC: Denies thrombophilia/previous clots, or coagulopathy/bleeding disorders. ONCOLOGIC: Denies personal history of malignancy. DERMATOLOGIC: Denies rashes or pruritus. PSYCHIATRIC: Denies any suicidal or homicidal ideation. Denies hallucinations. PHYSICAL EXAM GENERAL APPEARANCE: The patient is awake, alert, and oriented, in no acute cardiopulmonary distress. NEUROLOGICAL: Cranial nerves II-XII grossly intact. Motor is 5/5 in bilateral upper and lower extremities proximal to distal. No sensory deficits. HEENT: Face is symmetric. Pupils are equal and reactive. Extraocular movements are intact. NECK: Supple. No JVD. No thyromegaly. No submental, submandibular, pre- /postauricular, occipital or supraclavicular lymphadenopathy. CHEST: Normal chest expansion. No Telemetry. LUNGS: Absence of any rales, rhonchi or any wheezing. CARDIOVASCULAR: Regular. S1 and S2 normal. No appreciable rubs, murmurs or gallops. ABDOMEN: Morbidly obese Soft, nontender, and nondistended. There is no rebound, voluntary guarding, or rigidity. : Deferred. No Jones. EXTREMITIES: Non-edematous and not cyanotic. No clubbing. Good capillary refill. SKIN: No skin breakdown. Perirectal abscess bursted Vital Signs (last 8hr) Date Time Temp Pulse Resp B/P (MAP) Pulse Ox O2 Delivery O2 Flow Rate FiO2 09/05/24 12:00 97.5 75 18 118/63 96 Room Air 21 09/05/24 10:17 97.5 09/05/24 08:17 97.5 69 20 110/64 95 Room Air LABS: Laboratory: Test 09/05/24 11:29 09/04/24 04:50 Range/Units Whole Blood Glucose 139 H 70-110 MG/DL White Blood Count 7.7 # 4.8-10.8 K/uL Red Blood Count 3.59 L 4.00-5.50 MIL/uL Hemoglobin 10.7 L 12.0-16.0 g/dL Hematocrit 31.5 L 36-48 % Mean Corpuscular Volume 87.7 79-99 fL Mean Corpuscular Hemoglobin 29.8 27.0-33.0 pg Mean Corpuscular Hemoglobin Concent 34.0 32.0-36.0 g/dL Red Cell Distribution Width 12.7 11.0-15.5 % Platelet Count 214 130-400 K/uL Mean Platelet Volume 10.5 7.5-10.5 fL Immature Granulocyte % (Auto) 1.0 0-1 % Neutrophils (%) (Auto) 55.1 40.0-77.0 % Lymphocytes (%) (Auto) 28.3 21.0-51.0 % Monocytes (%) (Auto) 7.6 3.0-13.0 % Eosinophils (%) (Auto) 7.1 0.0-8.0 % Basophils (%) (Auto) 0.9 0.0-5.0 % Neutrophils # (Auto) 4.3 1.8-7.7 K/uL Lymphocytes # (Auto) 2.2 1.0-4.8 K/uL Monocytes # (Auto) 0.6 0.1-1.0 K/uL Eosinophils # (Auto) 0.55 0.00-0.70 K/uL Basophils # (Auto) 0.07 0.00-0.20 K/uL Absolute Immature Granulocyte (auto 0.08 0-1 K/uL Nucleated Red Blood Cells 0.0 0.0-0.19 % Sodium Level 140 136-145 mmol/L Potassium Level 3.6 3.5-5.1 mmol/L Chloride Level 104 101-111 mmol/L Carbon Dioxide Level 27 21-32 mmol/L Blood Urea Nitrogen 29 H 7-18 mg/dL Creatinine 1.8 H 0.5-1.0 mg/dL Glomerular Filtration Rate Calc 33 >90 mL/min Random Glucose 132 H 70-105 mg/dL Total Calcium 8.7 8.5-10.1 mg/dL Magnesium Level 2.20 1.80-2.40 mg/dL Total Bilirubin 0.3 0.2-1.0 mg/dL Aspartate Amino Transf (AST/SGOT) 28 10-37 U/L Alanine Aminotransferase (ALT/SGPT) 36 12-78 U/L Alkaline Phosphatase 131 50-136 U/L Total Protein 7.3 6.0-8.3 g/dL Albumin 2.5 L 3.5-5.0 g/dL Current Medications Medications (Trade) Dose Ordered Sig/Sherman Route PRN Reason Start Time Stop Time Status Last Admin Dose Admin Acetaminophen (TYLenol 325MG TAB) 650 mg Q6H PRN PO MILD PAIN (1-3) 09/03/24 21:00 10/03/24 20:59 09/05/24 10:17 650 MG Atorvastatin Calcium (LIPItor 10MG) 10 mg HS PO 09/03/24 21:00 10/03/24 20:59 09/04/24 20:27 10 MG Dextrose (D50w) 50 ml AD PRN IV HYPOGLYCEMIA PROTOCOL 09/02/24 04:30 09/02/24 11:27 DC Dextrose (D50w) 50 ml AD PRN IV HYPOGLYCEMIA PROTOCOL 09/02/24 11:30 10/02/24 11:29 Famotidine (Pepcid 20mg Vial) 20 mg Q48H IV 09/02/24 04:30 10/02/24 04:29 09/02/24 04:45 20 MG Glucagon (Glucagon 1mg Kit) 1 mg AD PRN IM HYPOGLYCEMIA PROTOCOL 09/02/24 04:30 09/02/24 11:27 DC Glucagon (Glucagon 1mg Kit) 1 mg AD PRN IM HYPOGLYCEMIA PROTOCOL 09/02/24 11:30 10/02/24 11:29 Heparin Sodium (Porcine) (HEParin 5,000 UNIT VIAL) 10,000 unit AD IRRIG 09/04/24 15:00 10/04/24 14:59 09/04/24 18:24 10,000 UNIT Home Med (Home Medication) (Cholecalciferol (Vitamin D3) (D3-50) 1 CAP) DAILY PO 09/04/24 09:00 10/04/24 08:59 Hydromorphone HCl (DiLAUDid 0.5MG INJ) 0.2 mg Q6H PRN IVP SEVERE PAIN (7-10) 09/02/24 04:30 09/07/24 04:29 09/03/24 04:14 0.2 MG Insulin Human Regular (humuLIN R 100 UNIT/ML 3ML) INSULIN SLIDING SCAL... ACHS SQ 09/02/24 07:30 09/02/24 11:27 DC Insulin Human Regular (humuLIN R 100 UNIT/ML 3ML) INSULIN SLIDING SCAL... ACHS SQ 09/02/24 11:30 10/02/24 11:29 09/04/24 20:46 2 UNIT Miscellaneous Medication (Famotidine ) 1 tab DAILY PO 09/04/24 09:00 09/03/24 10:31 DC Nifedipine (adALAT 30MG) 60 mg DAILY PO 09/04/24 09:00 10/04/24 08:59 09/05/24 10:12 60 MG Piperacillin Sod/ Tazobactam Sod 50 ml @ 12.5 mls/hr Q8H IV 09/02/24 08:00 09/12/24 07:59 09/05/24 10:12 12.5 MLS/HR Sodium Chloride 1,000 ml @ 0 mls/hr ONCE IV 09/04/24 15:00 10/04/24 14:59 Vancomycin HCl 250 ml @ 125 mls/hr ONCE IV 09/02/24 04:30 09/02/24 04:37 DC Vancomycin HCl (Vancomycin 750mg) 750 mg QTUTHSA[DIALYSIS] IVPB 09/04/24 16:00 09/14/24 15:59 09/04/24 20:28 750 MG Vancomycin HCl (Vancomycin Protocol) 1 each AD IV 09/02/24 04:30 09/16/24 04:29 Vitamin B Complex/ Vit C/Folic Acid (Nephrovite Tablet) 1 cap DAILY PO 09/04/24 09:00 10/04/24 08:59 09/05/24 10:12 1 CAP DIAGNOSTICS / RADIOLOGY: [ ] ASSESSMENT: Sepsis with orgran dysfunction (Tmax 100.9, WBC 13, HR 100, source perirectal abscess), POA Recurrent Right perirectal abscess POA Acute complicated cystitis POA Chronic anemia due to CKD POA End-stage renal disease on hemodialysis POA Uncontrolled diabetes mellitus type 2 with hypoglycemia POA Uncontrolled Hypertension POA Hyperlipidemia POA Electrolyte imbalance hypokalemia 3.4 POA Morbid obesity POA History of I and D of perirectal abscess POA PLAN: Patient remains in medical-surgical floor Diabetic diet I and D with Dr. Gasca was canceled as per family request Pending final wound culture We will continue Zosyn IV and vancomycin IV for broad-spectrum coverage C/w Famotidine 20 mg IV q.48h for GI prophylaxis C/w insulin sliding scale AC & HS with hypoglycemia protocol C/w prn medication for fever,pain,cough and nausea Labs and radiology reviewed by SALES CORRESPONDENT Nephrology consultation for inpatient HD Infectious Disease for rectal abscess Blood culture negative x2 Urine culture negative A.m. labs Further orders to follow depending on above results Treatment plan discussed with patient and family at the bedside Medications to be reconciled once obtained by patient and/or family and available to be reconciled in computer P.r.n. medication for pain nausea and vomiting Questions were answered We will continue to monitor the patient closely Awning Hanger Helper for disposition Rehab: PT/OT/ST GI: PPI DVT: SCD's Code Status: Full Resuscitation Disposition: TBD Prognosis: Guarded ATTESTATION BY PHYSICIAN I have seen and examined the patient. I reviewed the documentation, medical decision making, and treatment plan as noted by the mid-level provider above. I agree with the findings and plan of care. Rishabh Robles IV, MD, KAT[employer]YNA [employer] Sep 05, 2024 12:16
[2024-09-05 16:20] LABS: HEPATITIS B CORE AB TOTAL Non-Reactive (Nonreactive); HEPATITIS B SURFACE ANTIBODY Negative (Reactive); HEPATITIS B SURFACE ANTIGEN Non-Reactive (Nonreactive)
--- NOTE | 2024-09-05 16:30 | NUR ---
BLOOD GLUCOSE 114. NO INSULIN COVERAGE NEEDED AT THIS TIME.
--- NOTE | 2024-09-05 17:00 | NUR ---
PATIENT COMPLAINED ABOUT IV SITE LEAKING. MRS. STANLEY PLACED A 20 G ON RIGHT FOREARM.
[2024-09-06] VITALS (22 sets, daily range): BP systolic 98–118; BP diastolic 50–66; PULSE 66–86; RESP 16–20; TEMP 97.3–98.3; O2SAT 95–96
[2024-09-06 05:35] LABS: BASOPHILS # (AUTO) 0.09 K/uL (0.00-0.20); BASOPHILS % (AUTO) 0.8 % (0.0-5.0); EOSINOPHILS # (AUTO) 0.67 K/uL (0.00-0.70); EOSINOPHILS % (AUTO) 5.7 % (0.0-8.0); IMMATURE GRANULOCYTE ABSOLUTE 0.11 K/uL (0-1); LYMPHOCYTES # (AUTO) 4.4 K/uL (1.0-4.8); LYMPHOCYTES % (AUTO) 37.7 % (21.0-51.0); MEAN CORPUSCULAR HGB CONC 33.2 g/dL (32.0-36.0); MEAN CORPUSCULAR VOLUME 90.2 fL (79-99); MONOCYTES # (AUTO) 0.6 K/uL (0.1-1.0); MONOCYTES % (AUTO) 5.5 % (3.0-13.0); NEUTROPHILS # (AUTO) 5.8 K/uL (1.8-7.7); NEUTROPHILS % (AUTO) 49.4 % (40.0-77.0); PLATELET COUNT (AUTO) 298 K/uL (130-400); RED CELL DISTRIBUTION WIDTH 12.3 % (11.0-15.5); WHITE BLOOD COUNT (AUTO) 11.7 K/uL (4.8-10.8)
[2024-09-06 05:50] LABS: BILIRUBIN,TOTAL 0.3 mg/dL (0.2-1.0); CREATININE 1.7 mg/dL (0.5-1.0); MAGNESIUM 2.1 mg/dL (1.80-2.40); PHOSPHORUS 5.6 mg/dL (2.5-4.9); POTASSIUM 3.7 mmol/L (3.5-5.1); TOTAL PROTEIN, SERUM 8.4 g/dL (6.0-8.3); VANCOMYCIN TROUGH 6.1 UG/ML (10.0-20.0)
--- NOTE | 2024-09-06 07:00 | NUR ---
The patient is received with report from the greenskeeper supervisor nurse. She is in no distress. The bed is in the lowest position and the call valero is in reach.
--- NOTE | 2024-09-06 09:09 | NUR ---
HD scheduled fopr today, holding PO Nifidepine
[2024-09-06] MEDS: PoTASSium chloRIDE 20MEQ ER 20 MEQ ERTAB PO ONE (10:54)
--- NOTE | 2024-09-06 11:45 | PN ---
[facility] PROGRESS NOTE Date of Service: Sep 06, 2024 Time of Service: 11:[address] Robles SUBJECTIVE: [09/02 54 year old female admitted for right perirectal abscess, by CT A/P. This is recurrent. She presented in the ED with sepsis with fever of 100.9, now afebrile. We will be trending her WBC and surgeon consulted. We will also consult Infectious Disease due to abscess and antbx stewardship. Patient c/o right perirectal pain. 09/03/24 patient was seen by nurse practitioner and physician during rounding in room 314 lying in the bed. Patient's potassium today is 3.4 and we will receive 40 mEq of potassium. Rough Rib Grader is on the case for ESRD dialysis. Urine culture blood culture pending. At this moment per ID patient is on vancomycin and Zosyn. Patient was evaluated by surgeon and that is pending I and D. in the meantime the per rectal abscess bursted and RN obtain culture aerobic and anaerobic of the abscess. WBC today is 12.5 , which has improved from the previous days. Urinalysis positive for leukocytosis. Creatinine has improved today is 1.9 BUN 25 GFR 31. We will continue to monitor patient in the meantime. A.m. labs 09/04 patient was seen by nurse practitioner physician during rounding in room 312. Patient was seen by Dr. Gasca and is signing off at this moment. Patient continues to be on vancomycin Zosyn. Final blood culture negative x2. Urine culture final negative. We are still pending final culture of perirectal abscess. We will continue to monitor patient in the meantime. Continue ESRD as scheduled for dialysis. A.m. labs 09/05 patient was seen by RIVET TOSSER and physician. Perirectal wound culture is growing Gram-negative rods preliminary. Patient continues to be on vancomycin Zosyn. WBC 11.7. Creatinine has improved today is 1.7 compared to yesterday 1.8. BUN 35. We will continue to monitor patient in the meantime. Continue dialysis as scheduled. next pending today 09/06/2024. A.m. labs] REVIEW OF SYSTEMS CONSTITUTIONAL: Denies any fevers. Denies chills, or night sweats. No unintentional weight loss reported. NEUROLOGICAL: Denies headache, amaurosis fugax, motor weakness, sensory deficit, vertigo/spinning sensation, gait abnormalities, or tremors. ENT: No hearing loss, otalgia, otorrhea, rhinitis, rhinorrhea, hoarseness, or sore throat. CARDIOVASCULAR: Denies any exertional angina, dyspnea on exertion, orthopnea, paroxysmal nocturnal dyspnea, palpitations, life-threatening arrhythmias, claudication. PULMONARY: Denies any shortness of breath, cough, phlegm/sputum, hemoptysis, pleuritic chest pain. SLEEP: Denies morning headaches, daytime somnolence or napping. Denies difficulty falling asleep, staying asleep, waking from sleep. Denies knowledge of snoring. GASTROINTESTINAL: Denies any type of dysphagia to either liquids or solids. Denies nausea, vomiting, pyrosis, early satiety, abdominal pain, diarrhea, constipation, or changes in stool consistency or caliber. Denies coffee-ground emesis, hematemesis, hematochezia, or melanotic stools. GENITOURINARY: Denies frequency, urgency, nocturia, hematuria or incontinence (Storage/Irritative symptoms.) Low urinary stream, straining to void, urinary intermittency or hesitancy, splitting of the voiding stream, terminal dribbling. ENDOCRINOLOGIC: Denies polyuria, polydipsia, polyphagia or heat/cold intolerances. HEMATOLOGIC: Denies thrombophilia/previous clots, or coagulopathy/bleeding disorders. ONCOLOGIC: Denies personal history of malignancy. DERMATOLOGIC: Denies rashes or pruritus. PSYCHIATRIC: Denies any suicidal or homicidal ideation. Denies hallucinations. PHYSICAL EXAM GENERAL APPEARANCE: The patient is awake, alert, and oriented, in no acute cardiopulmonary distress. NEUROLOGICAL: Cranial nerves II-XII grossly intact. Motor is 5/5 in bilateral upper and lower extremities proximal to distal. No sensory deficits. HEENT: Face is symmetric. Pupils are equal and reactive. Extraocular movements are intact. NECK: Supple. No JVD. No thyromegaly. No submental, submandibular, pre- /postauricular, occipital or supraclavicular lymphadenopathy. CHEST: Normal chest expansion. No Telemetry. LUNGS: Absence of any rales, rhonchi or any wheezing. CARDIOVASCULAR: Regular. S1 and S2 normal. No appreciable rubs, murmurs or gallops. ABDOMEN: Morbidly obese Soft, nontender, and nondistended. There is no rebound, voluntary guarding, or rigidity. : Deferred. No Jones. EXTREMITIES: Non-edematous and not cyanotic. No clubbing. Good capillary refill. SKIN: No skin breakdown. Perirectal abscess bursted Vital Signs (last 8hr) Date Time Temp Pulse Resp B/P (MAP) Pulse Ox O2 Delivery O2 Flow Rate FiO2 09/06/24 10:37 96 Room Air* 0 21 09/06/24 08:00 97.7 75 18 98/50 96 Room Air 21 LABS: Laboratory: Test 09/06/24 11:34 09/06/24 05:15 09/04/24 15:27 Range/Units Whole Blood Glucose 120 H 70-110 MG/DL White Blood Count 11.7 H 4.8-10.8 K/uL Red Blood Count 4.10 4.00-5.50 MIL/uL Hemoglobin 12.3 12.0-16.0 g/dL Hematocrit 37.0 36-48 % Mean Corpuscular Volume 90.2 79-99 fL Mean Corpuscular Hemoglobin 30.0 27.0-33.0 pg Mean Corpuscular Hemoglobin Concent 33.2 32.0-36.0 g/dL Red Cell Distribution Width 12.3 11.0-15.5 % Platelet Count 298 # 130-400 K/uL Mean Platelet Volume 10.2 7.5-10.5 fL Immature Granulocyte % (Auto) 0.9 0-1 % Neutrophils (%) (Auto) 49.4 40.0-77.0 % Lymphocytes (%) (Auto) 37.7 21.0-51.0 % Monocytes (%) (Auto) 5.5 3.0-13.0 % Eosinophils (%) (Auto) 5.7 0.0-8.0 % Basophils (%) (Auto) 0.8 0.0-5.0 % Neutrophils # (Auto) 5.8 1.8-7.7 K/uL Lymphocytes # (Auto) 4.4 1.0-4.8 K/uL Monocytes # (Auto) 0.6 0.1-1.0 K/uL Eosinophils # (Auto) 0.67 0.00-0.70 K/uL Basophils # (Auto) 0.09 0.00-0.20 K/uL Absolute Immature Granulocyte (auto 0.11 0-1 K/uL Nucleated Red Blood Cells 0.0 0.0-0.19 % Sodium Level 140 136-145 mmol/L Potassium Level 3.7 3.5-5.1 mmol/L Chloride Level 102 101-111 mmol/L Carbon Dioxide Level 28 21-32 mmol/L Blood Urea Nitrogen 35 H 7-18 mg/dL Creatinine 1.7 H 0.5-1.0 mg/dL Glomerular Filtration Rate Calc 35 >90 mL/min Random Glucose 110 H 70-105 mg/dL Total Calcium 8.8 8.5-10.1 mg/dL Phosphorus Level 5.6 H 2.5-4.9 mg/dL Magnesium Level 2.10 1.80-2.40 mg/dL Total Bilirubin 0.3 0.2-1.0 mg/dL Aspartate Amino Transf (AST/SGOT) 23 10-37 U/L Alanine Aminotransferase (ALT/SGPT) 38 12-78 U/L Alkaline Phosphatase 135 50-136 U/L Total Protein 8.4 H 6.0-8.3 g/dL Albumin 3.0 L 3.5-5.0 g/dL Vancomycin Level Trough 6.1 #L 10.0-20.0 UG/ML Hepatitis B Surface Antigen. Non-Reactive Nonreactive Hepatitis B Surface Antibody. Negative L Reactive Hepatitis B Core Total Antibody. Non-Reactive Nonreactive Current Medications Medications (Trade) Dose Ordered Sig/Sherman Route PRN Reason Start Time Stop Time Status Last Admin Dose Admin Acetaminophen (TYLenol 325MG TAB) 650 mg Q6H PRN PO MILD PAIN (1-3) 09/03/24 21:00 10/03/24 20:59 09/05/24 10:17 650 MG Atorvastatin Calcium (LIPItor 10MG) 10 mg HS PO 09/03/24 21:00 10/03/24 20:59 09/05/24 21:58 10 MG Dextrose (D50w) 50 ml AD PRN IV HYPOGLYCEMIA PROTOCOL 09/02/24 04:30 09/02/24 11:27 DC Dextrose (D50w) 50 ml AD PRN IV HYPOGLYCEMIA PROTOCOL 09/02/24 11:30 10/02/24 11:29 Famotidine (Pepcid 20mg Vial) 20 mg Q48H IV 09/02/24 04:30 10/02/24 04:29 09/06/24 04:26 20 MG Glucagon (Glucagon 1mg Kit) 1 mg AD PRN IM HYPOGLYCEMIA PROTOCOL 09/02/24 04:30 09/02/24 11:27 DC Glucagon (Glucagon 1mg Kit) 1 mg AD PRN IM HYPOGLYCEMIA PROTOCOL 09/02/24 11:30 10/02/24 11:29 Heparin Sodium (Porcine) (HEParin 5,000 UNIT VIAL) 10,000 unit AD IRRIG 09/04/24 15:00 10/04/24 14:59 09/04/24 18:24 10,000 UNIT Home Med (Home Medication) (Cholecalciferol (Vitamin D3) (D3-50) 1 CAP) DAILY PO 09/04/24 09:00 10/04/24 08:59 Hydromorphone HCl (DiLAUDid 0.5MG INJ) 0.2 mg Q6H PRN IVP SEVERE PAIN (7-10) 09/02/24 04:30 09/07/24 04:29 09/03/24 04:14 0.2 MG Insulin Human Regular (humuLIN R 100 UNIT/ML 3ML) INSULIN SLIDING SCAL... ACHS SQ 09/02/24 07:30 09/02/24 11:27 DC Insulin Human Regular (humuLIN R 100 UNIT/ML 3ML) INSULIN SLIDING SCAL... ACHS SQ 09/02/24 11:30 10/02/24 11:29 09/05/24 22:02 4 UNIT Miscellaneous Medication (Famotidine ) 1 tab DAILY PO 09/04/24 09:00 09/03/24 10:31 DC Nifedipine (adALAT 30MG) 60 mg DAILY PO 09/04/24 09:00 10/04/24 08:59 09/05/24 10:12 60 MG Piperacillin Sod/ Tazobactam Sod 50 ml @ 12.5 mls/hr Q8H IV 09/02/24 08:00 09/12/24 07:59 09/06/24 09:04 12.5 MLS/HR Sodium Chloride 1,000 ml @ 0 mls/hr ONCE IV 09/04/24 15:00 09/06/24 06:30 DC Vancomycin HCl 250 ml @ 125 mls/hr ONCE IV 09/02/24 04:30 09/02/24 04:37 DC Vancomycin HCl 250 ml @ 125 mls/hr QTUTHSA[DIALYSIS] IV 09/06/24 16:00 09/16/24 15:59 Vancomycin HCl (Vancomycin 750mg) 750 mg QTUTHSA[DIALYSIS] IVPB 09/04/24 16:00 09/06/24 06:46 DC 09/04/24 20:28 750 MG Vancomycin HCl (Vancomycin Protocol) 1 each AD IV 09/02/24 04:30 09/16/24 04:29 Vitamin B Complex/ Vit C/Folic Acid (Nephrovite Tablet) 1 cap DAILY PO 09/04/24 09:00 10/04/24 08:59 09/06/24 09:04 1 CAP DIAGNOSTICS / RADIOLOGY: [ ] ASSESSMENT: Sepsis with orgran dysfunction (Tmax 100.9, WBC 13, HR 100, source perirectal abscess), POA Recurrent Right perirectal abscess POA Acute complicated cystitis POA Chronic anemia due to CKD POA End-stage renal disease on hemodialysis POA Uncontrolled diabetes mellitus type 2 with hypoglycemia POA Uncontrolled Hypertension POA Hyperlipidemia POA Electrolyte imbalance hypokalemia 3.4 POA Morbid obesity POA History of I and D of perirectal abscess POA PLAN: Patient remains in medical-surgical floor Diabetic diet I and D with Dr. Gasca was canceled as per family request Pending final wound culture Preliminary culture upper rectal wound growing Gram-negative rods as of two 09/06/2023 We will continue Zosyn IV and vancomycin IV for broad-spectrum coverage C/w Famotidine 20 mg IV q.48h for GI prophylaxis C/w insulin sliding scale AC & HS with hypoglycemia protocol C/w prn medication for fever,pain,cough and nausea Labs and radiology reviewed by RIVET TOSSER Nephrology consultation for inpatient HD Blood culture negative x2 Urine culture negative A.m. labs Further orders to follow depending on above results Treatment plan discussed with patient and family at the bedside Medications to be reconciled once obtained by patient and/or family and available to be reconciled in computer P.r.n. medication for pain nausea and vomiting Questions were answered We will continue to monitor the patient closely [employer] for disposition Rehab: PT/OT/ST GI: PPI DVT: SCD's Code Status: Full Resuscitation Disposition: Home once medically cleared Prognosis: Guarded ATTESTATION BY PHYSICIAN I have seen and examined the patient. I reviewed the documentation, medical decision making, and treatment plan as noted by the mid-level provider above. I agree with the findings and plan of care. Rishabh Robles IV, MD, KATARZYNA B MARINE REPORTER Sep 06, 2024 11:45
[2024-09-06] MEDS: ALBUMIN (HUMAN) 25% 50 ML IV.SOLN. IV SCH (13:21)
[2024-09-06] MEDS: VANCOMYCIN 1.25 GM/250 ML BAG 250 ML IV SCH (15:52)
--- NOTE | 2024-09-06 20:22 | PN ---
NEPHROLOGY NOTE SUBJECTIVE: The patient has been evaluated and seen for dialysis and seen several times. The patient has no other associated finding. No other aggravating or relieving factors. The patient is critically ill. The patient has generalized weakness. PHYSICAL EXAMINATION: GENERAL: Pale, no other distress. VITAL SIGNS: Blood pressure has been 118/70, respiratory rate is 18, afebrile. HEENT: Head is atraumatic. Pupils are round and reactive. Sclerae are anicteric. Conjunctivae not pale. Oral mucosa is not dry. NECK: Supple. No masses, bruits. Thyroid is palpable. Neck has no bruits. CHEST: Shows equal thoracic percussion note being resonant in all areas. CARDIAC: Regular rhythm, no rub, no S3, S4. No parasternal heave. Apical beat is not localized. ABDOMEN: With no guarding or tenderness. Bowel sounds present. EXTREMITIES: No edema and no cyanosis, clubbing. LABORATORY DATA: We have reviewed available labs in detail. The patient has been evaluated several times today and labs have shown increased BUN and creatinine. Old records reviewed. White cell count has been normal. Hemoglobin low. PROBLEMS: Renal failure and anemia. PLAN: To continue dialysis support. Continue monitoring of renal function. Continue monitoring of electrolytes. The patient has evaluated and seen for dialysis and seen several times. I will continue to monitor closely. I have discussed with other team members and we will be monitoring closely. Thank you for this patient. TID: [id number] RECEIPT: [id number]
--- NOTE | 2024-09-06 20:28 | PN ---
SUBJECTIVE: This patient has been evaluated, seen for dialysis, seen several times. Blood pressure has been fluctuating. No fever, chills or rigors. No other associated finding. No other aggravating or relieving factors. No other associated symptoms. PROBLEMS: Renal failure, anemia and multiple other comorbidities. PLAN: To continue dialysis support. Continue monitoring of renal function. Continue monitoring of electrolytes. Intake, output, weight and overall status will be monitored. Nonsteroidal drugs will be avoided. Doses of medicine will be adjusted. We will continue to follow closely. The patient was evaluated and seen for dialysis multiple times. Epogen as needed. We will be monitoring closely. I have discussed with other team physicians in detail. Thank you for this patient. The patient was evaluated on dialysis multiple times. TID: [id number] RECEIPT: [id number]
[2024-09-07 03:19] VITALS: BP 94/58; PULSE 64; RESP 18; TEMP 98
[2024-09-07 05:01] LABS: BASOPHILS # (AUTO) 0.06 K/uL (0.00-0.20); BASOPHILS % (AUTO) 0.7 % (0.0-5.0); EOSINOPHILS # (AUTO) 0.43 K/uL (0.00-0.70); EOSINOPHILS % (AUTO) 5.1 % (0.0-8.0); HEMATOCRIT 33.1 % (36-48); IMMATURE GRANULOCYTE ABSOLUTE 0.08 K/uL (0-1); LYMPHOCYTES % (AUTO) 35.6 % (21.0-51.0); MEAN CORPUSCULAR HGB CONC 33.8 g/dL (32.0-36.0); MEAN CORPUSCULAR VOLUME 88.7 fL (79-99); MONOCYTES # (AUTO) 0.6 K/uL (0.1-1.0); MONOCYTES % (AUTO) 6.9 % (3.0-13.0); NEUTROPHILS # (AUTO) 4.2 K/uL (1.8-7.7); NEUTROPHILS % (AUTO) 50.7 % (40.0-77.0); PLATELET COUNT (AUTO) 245 K/uL (130-400); RED BLOOD CELL COUNT(AUTO) 3.73 MIL/uL (4.00-5.50); RED CELL DISTRIBUTION WIDTH 12.4 % (11.0-15.5); WHITE BLOOD COUNT (AUTO) 8.4 K/uL (4.8-10.8)
[2024-09-07 05:19] LABS: ALBUMIN 3.4 g/dL (3.5-5.0); BILIRUBIN,TOTAL 0.4 mg/dL (0.2-1.0); CREATININE 1.5 mg/dL (0.5-1.0); MAGNESIUM 2.1 mg/dL (1.80-2.40); PHOSPHORUS 4.4 mg/dL (2.5-4.9); POTASSIUM 3.6 mmol/L (3.5-5.1); TOTAL PROTEIN, SERUM 8.3 g/dL (6.0-8.3)
[2024-09-07 05:26] VITALS: BP 105/55
[2024-09-07 08:00] VITALS: BP 110/64; PULSE 70; TEMP 97.6; O2SAT 95
[2024-09-07] MEDS ORDERED: LEVO-70 PO (11:56)
[2024-09-07 12:00] VITALS: BP 107/45; PULSE 78; RESP 18; TEMP 97.6
--- NOTE | 2024-09-07 12:00 | DS ---
Discharge Summary Hospital Course Summary: DATE OF ADMISSION:[09/01/2024] DATE OF DISCHARGE:[09/06/2024] DISPOSITION:[Home] CONDITION:[Medically cleared] CONSULTANTS:[[employer], surgeon] FOLLOW UP APPOINTMENTS:[PCP 2 to 3 days. [employer] as scheduled for dialysis. Surgeon within two weeks] PROCEDURES:[None] IMAGING: report attached to summary MICROBIOLOGY: report attached to summary ACTIVITY: Independent] HOME MEDICATIONS: see [facility] NEW MEDICATIONS:[[Levofloxacin 500 mg p.o. 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 Patient is also ESRD dialysis Dr. Shepard was consulted. We also consulted surgeon for possible I&D. In the meantime the abscess bursted and we are able to obtain culture which grew Klebsiella pneumoniae. Patient denied any I and D stated that she does not need anymore since she feels much better at this moment. Today patient was cleared by the surgeon to be discharged home follow up within two weeks. Urine culture final was negative and blood culture negative x2. Patient was also advised to follow up with PCP in 2 to 3 days. Patient to follow up with warp coiler as scheduled for dialysis. Procedure(s): REVIEW OF SYSTEMS CONSTITUTIONAL: Denies any fevers. Denies chills, or night sweats. No unintentional weight loss reported. NEUROLOGICAL: Denies headache, amaurosis fugax, motor weakness, sensory deficit, vertigo/spinning sensation, gait abnormalities, or tremors. ENT: No hearing loss, otalgia, otorrhea, rhinitis, rhinorrhea, hoarseness, or sore throat. CARDIOVASCULAR: Denies any exertional angina, dyspnea on exertion, orthopnea, paroxysmal nocturnal dyspnea, palpitations, life-threatening arrhythmias, claudication. PULMONARY: Denies any shortness of breath, cough, phlegm/sputum, hemoptysis, pleuritic chest pain. SLEEP: Denies morning headaches, daytime somnolence or napping. Denies difficulty falling asleep, staying asleep, waking from sleep. Denies knowledge of snoring. GASTROINTESTINAL: Denies any type of dysphagia to either liquids or solids. Denies nausea, vomiting, pyrosis, early satiety, abdominal pain, diarrhea, constipation, or changes in stool consistency or caliber. Denies coffee-ground emesis, hematemesis, hematochezia, or melanotic stools. GENITOURINARY: Denies frequency, urgency, nocturia, hematuria or incontinence (Storage/Irritative symptoms.) Low urinary stream, straining to void, urinary intermittency or hesitancy, splitting of the voiding stream, terminal dribbling. ENDOCRINOLOGIC: Denies polyuria, polydipsia, polyphagia or heat/cold intolerances. HEMATOLOGIC: Denies thrombophilia/previous clots, or coagulopathy/bleeding disorders. ONCOLOGIC: Denies personal history of malignancy. DERMATOLOGIC: Denies rashes or pruritus. PSYCHIATRIC: Denies any suicidal or homicidal ideation. Denies hallucinations. PHYSICAL EXAM GENERAL APPEARANCE: The patient is awake, alert, and oriented, in no acute cardiopulmonary distress. NEUROLOGICAL: Cranial nerves II-XII grossly intact. Motor is 5/5 in bilateral upper and lower extremities proximal to distal. No sensory deficits. HEENT: Face is symmetric. Pupils are equal and reactive. Extraocular movements are intact. NECK: Supple. No JVD. No thyromegaly. No submental, submandibular, pre- /postauricular, occipital or supraclavicular lymphadenopathy. CHEST: Normal chest expansion. No Telemetry. LUNGS: Absence of any rales, rhonchi or any wheezing. CARDIOVASCULAR: Regular. S1 and S2 normal. No appreciable rubs, murmurs or gallops. ABDOMEN: Morbidly obese Soft, nontender, and nondistended. There is no rebound, voluntary guarding, or rigidity. : Deferred. No Jones. EXTREMITIES: Non-edematous and not cyanotic. No clubbing. Good capillary refill. SKIN: No skin breakdown. Perirectal abscess bursted Assessment/Plan: ASSESSMENT: Sepsis with orgran dysfunction (Tmax 100.9, WBC 13, HR 100, source perirectal abscess), POA Recurrent Right perirectal abscess POA Wound culture growing Klebsiella pneumoniae Acute complicated cystitis POA Chronic anemia due to CKD POA End-stage renal disease on hemodialysis POA Uncontrolled diabetes mellitus type 2 with hypoglycemia POA Uncontrolled Hypertension POA Hyperlipidemia POA Electrolyte imbalance hypokalemia 3.4 POA Morbid obesity POA History of I and D of perirectal abscess POA Home Medications: Reported Medications Cholecalciferol (Vitamin D3) (D3-50) 1,250 Mcg (47261 Unit) Capsule, 1 CAP PO DAILY for 28 Days, #4 CAP 0 Refills 09/02/24 Nifedipine (Nifedipine ER) 60 Mg Tab.er.24, 1 TAB PO DAILY for 30 Days, #30 TAB 0 Refills 09/02/24 Cholecalciferol (Vitamin D3) (D3-50) 1,250 Mcg (56947 Unit) Capsule, 1 CAP PO QWEEK for 28 Days, #4 CAP 0 Refills 09/02/24 Atorvastatin Calcium (LIPITOR) 10 Mg Tab, 1 TAB PO HS for 30 Days, #30 TAB 0 Refills 09/02/24 Famotidine (Famotidine) 10 Mg Tablet, 1 TAB PO DAILY for 30 Days, #30 TAB 0 Refills 09/02/24 Folic Acid/Vitamin B Comp W-C (Ely-Ra Tablet) 0.8 Mg Tablet, 1 TAB PO DAILY for 30 Days, #30 TAB 0 Refills 09/02/24 Aspirin (ASPIRIN 81MG CHEW TAB) 81 Mg Tab.chew, 1 TAB PO DAILY for 30 Days, #30 TAB 0 Refills 09/02/24 Discontinued Reported Medications Nystatin (Mycostatin Cream) 100,000 Unit/Gram Crm, 1 APPL TP BID for 7 Days, #30 GM 0 Refills apply to affected area(s) 09/02/24 Mupirocin (Mupirocin Ointment) 2 % Oint, 1 APPL TP TID for 5 Days, #15 GM 0 Refills apply to affected area(s) 09/02/24 Sulfamethoxazole/Trimethoprim (Sulfamethoxazole-Tmp Ss Tablet) 400 Mg-80 Mg Tablet, 1 TAB PO BID for 10 Days, #20 TAB 0 Refills 09/02/24 Tolterodine Tartrate (Detrol LA) 4 Mg Cap.er.24h, 4 MG PO DAILY, CAPSULE.DR 08/18/23 Loratadine (Loratadine) 10 Mg Tablet, 10 MG PO DAILY, TAB 08/18/23 Empagliflozin (Jardiance) 10 Mg Tablet, 10 MG PO DAILY, TAB 08/18/23 Azilsartan Medoxomil (Edarbi) 80 Mg Tablet, 80 MG PO DAILY, TAB 08/18/23 Pitavastatin Calcium (Pitavastatin Calcium) 4 Mg Tablet, 4 MG PO DAILY, TAB 08/18/23 Ferrous Sulfate, Dried (Iron) 159 Mg (45 Mg Iron) Tablet.er, 159 MG PO DAILY, TAB 08/18/23 Dexlansoprazole (Dexilant) 60 Mg Cap.mp, 60 MG PO DAILY 01/09/22 Fluoxetine HCl (Prozac) 40 Mg Capsule, 40 MG PO DAILY, CAP 01/09/22 Aripiprazole (Aripiprazole) 5 Mg Tablet, 5 MG PO HS, TAB 01/09/22 Hydralazine HCl (Hydralazine HCl) 25 Mg Tablet, 25 MG PO TID, TAB 01/09/22 Time spent arranging discharge: 31-60 minutes ATTESTATION BY PHYSICIAN I have seen and examined the patient. I reviewed the documentation, medical decision making, and treatment plan as noted by the mid-level provider above. I agree with the findings and plan of care. Rishabh Robles IV, MD, KATARZYNA B APRN Sep 07, 2024 12:00
--- NOTE | 2024-09-07 13:15 | PN ---
NEPHROLOGY PROGRESS NOTE Date/Time Patient Seen: Sep 07, 2024 Reason for Consultation: 13:14 SUBJECTIVE: This is a 54-year-old female with a past medical history of End-Stage Renal Disease On Hemodialysis Tuesday, hypertension, diabetes mellitus type 2, hyperlipidemia, and morbid obesity. Patient presented to the emergency room with complaints of perirectal abscess She was found to have perirectal abscess on CT scan. Blood cultures has been negative, continues on antibiotics. She has been tolerating dialysis without difficulty. She is pending discharge disposition later today. She was seen in the medical floor, in no acute distress No family at the bedside Prognosis remains guarded REVIEW OF SYSTEMS: GENERAL: Negative for any nausea, vomiting, fevers, chills, or weight loss. NEUROLOGIC: Negative for any blurry vision, blind spots, double vision, facial asymmetry, dysphagia, dysarthria, hemiparesis, hemisensory deficits, vertigo, ataxia. HEENT: Negative for any head trauma, neck trauma, neck stiffness, photophobia, phonophobia, sinusitis, rhinitis. CARDIAC: Negative for any chest pain, dyspnea on exertion, paroxysmal nocturnal dyspnea, peripheral edema. PULMONARY: Negative for any shortness of breath, wheezing, COPD, or TB exposure. GASTROINTESTINAL: Negative for any abdominal pain, nausea, vomiting, bright red blood per rectum, melena. GENITOURINARY: Negative for any dysuria, hematuria, incontinence. INTEGUMENTARY: Negative for any rashes, cuts, insect bites. RHEUMATOLOGIC: Negative for any joint pains, photosensitive rashes, history of vasculitis or kidney problems. HEMATOLOGIC: Negative for any abnormal bruising, frequent infections or bleeding. Vital Signs (last 8hr) Date Time Temp Pulse Resp B/P (MAP) Pulse Ox O2 Delivery O2 Flow Rate FiO2 09/03/24 12:00 98.1 74 18 116/62 Room Air 09/03/24 08:00 98.1 72 18 126/70 96 Room Air PHYSICAL EXAM: GENERAL: Alert and oriented x 3. No acute distress. Well-nourished. EYES: EOMI. Anicteric. HENT: Moist mucous membranes. No scleral icterus. No cervical lymphadenopathy. LUNGS: Clear to auscultation bilaterally. No accessory muscle use. CARDIOVASCULAR: Regular rate and rhythm. No murmur. No JVD. ABDOMEN: Soft, non-tender and non-distended. No palpable masses. EXTREMITIES: No edema. Non-tender.?SKIN: No rashes or lesions. Warm. NEUROLOGIC: No focal neurological deficits. CN II-XII grossly intact, but not individually tested. PSYCHIATRIC: Cooperative. Appropriate mood and affect. Current Medications Medications (Trade) Dose Ordered Sig/Sherman Route PRN Reason Start Time Stop Time Status Last Admin Dose Admin Atorvastatin Calcium (LIPItor 10MG) 10 mg HS PO 09/03/24 21:00 10/03/24 20:59 Dextrose (D50w) 50 ml AD PRN IV HYPOGLYCEMIA PROTOCOL 09/02/24 04:30 09/02/24 11:27 DC Dextrose (D50w) 50 ml AD PRN IV HYPOGLYCEMIA PROTOCOL 09/02/24 11:30 10/02/24 11:29 Famotidine (Pepcid 20mg Vial) 20 mg Q48H IV 09/02/24 04:30 10/02/24 04:29 09/02/24 04:45 20 MG Glucagon (Glucagon 1mg Kit) 1 mg AD PRN IM HYPOGLYCEMIA PROTOCOL 09/02/24 04:30 09/02/24 11:27 DC Glucagon (Glucagon 1mg Kit) 1 mg AD PRN IM HYPOGLYCEMIA PROTOCOL 09/02/24 11:30 10/02/24 11:29 Home Med (Home Medication) (Cholecalciferol (Vitamin D3) (D3-50) 1 CAP) DAILY PO 09/04/24 09:00 10/04/24 08:59 Hydromorphone HCl (DiLAUDid 0.5MG INJ) 0.2 mg Q6H PRN IVP SEVERE PAIN (7-10) 09/02/24 04:30 09/07/24 04:29 09/03/24 04:14 0.2 MG Insulin Human Regular (humuLIN R 100 UNIT/ML 3ML) INSULIN SLIDING SCAL... ACHS SQ 09/02/24 07:30 09/02/24 11:27 DC Insulin Human Regular (humuLIN R 100 UNIT/ML 3ML) INSULIN SLIDING SCAL... ACHS SQ 09/02/24 11:30 10/02/24 11:29 09/02/24 20:21 2 UNIT Miscellaneous Medication (Famotidine ) 1 tab DAILY PO 09/04/24 09:00 09/03/24 10:31 DC Nifedipine (adALAT 30MG) 60 mg DAILY PO 09/04/24 09:00 10/04/24 08:59 Piperacillin Sod/ Tazobactam Sod 50 ml @ 12.5 mls/hr Q8H IV 09/02/24 08:00 09/12/24 07:59 09/03/24 08:01 12.5 MLS/HR Vancomycin HCl 250 ml @ 125 mls/hr ONCE IV 09/02/24 04:30 09/02/24 04:37 DC Vancomycin HCl (Vancomycin 750mg) 750 mg QTUTHSA[DIALYSIS] IVPB 09/04/24 16:00 09/14/24 15:59 Vancomycin HCl (Vancomycin Protocol) 1 each AD IV 09/02/24 04:30 09/16/24 04:29 Vitamin B Complex/ Vit C/Folic Acid (Nephrovite Tablet) 1 cap DAILY PO 09/04/24 09:00 10/04/24 08:59 LABORATORY: [ ] Hematology Labs: Test 09/07/24 04:43 Range/Units White Blood Count 8.4 # 4.8-10.8 K/uL Red Blood Count 3.73 L 4.00-5.50 MIL/uL Hemoglobin 11.2 L 12.0-16.0 g/dL Hematocrit 33.1 L 36-48 % Mean Corpuscular Volume 88.7 79-99 fL Mean Corpuscular Hemoglobin 30.0 27.0-33.0 pg Mean Corpuscular Hemoglobin Concent 33.8 32.0-36.0 g/dL Red Cell Distribution Width 12.4 11.0-15.5 % Platelet Count 245 130-400 K/uL Mean Platelet Volume 10.0 7.5-10.5 fL Immature Granulocyte % (Auto) 1.0 0-1 % Neutrophils (%) (Auto) 50.7 40.0-77.0 % Lymphocytes (%) (Auto) 35.6 21.0-51.0 % Monocytes (%) (Auto) 6.9 3.0-13.0 % Eosinophils (%) (Auto) 5.1 0.0-8.0 % Basophils (%) (Auto) 0.7 0.0-5.0 % Neutrophils # (Auto) 4.2 1.8-7.7 K/uL Lymphocytes # (Auto) 3.0 1.0-4.8 K/uL Monocytes # (Auto) 0.6 0.1-1.0 K/uL Eosinophils # (Auto) 0.43 0.00-0.70 K/uL Basophils # (Auto) 0.06 0.00-0.20 K/uL Absolute Immature Granulocyte (auto 0.08 0-1 K/uL Nucleated Red Blood Cells 0.0 0.0-0.19 % Chemistry Labs: Test 09/07/24 10:51 09/07/24 04:43 Range/Units Whole Blood Glucose 187 #H 70-110 MG/DL Sodium Level 137 136-145 mmol/L Potassium Level 3.6 3.5-5.1 mmol/L Chloride Level 99 L 101-111 mmol/L Carbon Dioxide Level 32 21-32 mmol/L Blood Urea Nitrogen 17 7-18 mg/dL Creatinine 1.5 H 0.5-1.0 mg/dL Glomerular Filtration Rate Calc 41 >90 mL/min Random Glucose 96 70-105 mg/dL Total Calcium 9.1 8.5-10.1 mg/dL Phosphorus Level 4.4 2.5-4.9 mg/dL Magnesium Level 2.10 1.80-2.40 mg/dL Total Bilirubin 0.4 # 0.2-1.0 mg/dL Aspartate Amino Transf (AST/SGOT) 23 10-37 U/L Alanine Aminotransferase (ALT/SGPT) 35 12-78 U/L Alkaline Phosphatase 112 50-136 U/L Total Protein 8.3 6.0-8.3 g/dL Albumin 3.4 L 3.5-5.0 g/dL DIAGNOSTICS / RADIOLOGY: REASON: perirectal abscess ORDERING PHYSICIAN: JOHANNE DALEY MD PROCEDURE: ABD PEL WO - CT ABDOMEN/PELVIS W/O CONTRAST CT ABDOMEN/PELVIS W/O CONTRAST HISTORY: Perirectal abscess COMPARISON: 01/09/2022 TECHNIQUE: Multiple sequential axial images of the abdomen and pelvis were obtained from the dome of the diaphragm through symphysis pubis. Patient was not given contrast through intravenous route. Oral contrast was not given. FINDINGS: No pleural effusion is seen bilaterally. There is no evidence of parenchymal disease or pulmonary nodule of the visualized lower lungs. Degenerative changes of the thoracolumbar spine are present. The heart is not enlarged. Coronary arterial calcifications are seen. Liver is enlarged with fatty changes measuring 18 cm. Post cholecystectomy changes are seen. The liver, spleen, adrenal glands and pancreas are unremarkable. There is no evidence of hydronephrosis bilaterally. No evidence of renal stone is seen. Fecal material is seen in the colon. There are normal size retroperitoneal and mesenteric lymph nodes. No ascites is seen. Appendix is not seen limiting evaluation. There is right perirectal fat stranding. There is small right perirectal abscess measuring 2.6 cm. Pelvic sidewalls are symmetric bilaterally. Bladder is poorly distended. IMPRESSION: 1. There is right perirectal fat stranding. There is small right perirectal abscess measuring 2.[address] was performed with one or more following dose reduction techniques: automated exposure control, adjustment of the mA and kv according to patient's size, or use of a iterative reconstruction technique. DICTATED BY: SUZY ERNANDEZ MD DATE: 09/01/24 8117 ASSESSMENT: Hypokalemia Chronic anemia End-stage renal disease Sepsis Recurrent right perirectal abscess Acute complicated cystitis Morbid obesity Uncontrolled Hypertension Uncontrolled Diabetes mellitus type 2 Hyperlipidemia PLAN: Labs and Diagnostics/ Radiology personally reviewed and interpreted by myself and supervising physician We have reviewed dialysis and external records in detail Pending discharge disposition later today. Continue with outpatient dialysis schedule Tuesday 1.5 L fluid restriction Continue to monitor H&H Epogen on dialysis days, as needed Continue with frequent monitoring of renal function, anemia, and electrolytes Order CBC, BMP, and electrolytes in the morning May use Dilaudid 0.5 mg IV every 6 hours as needed for severe pain Monitor blood pressure adjust medication doses as needed Maintain normotensive state Strict intake, output, and daily weight should be monitored Please renally adjust medications. Avoid nephrotoxics and nonsteroidal drugs. We will continue to monitor the patient closely We have discussed with the other team physicians in detail about the care plan ATTESTATION BY PHYSICIAN I have seen and examined the patient. I reviewed the documentation, medical decision making, and treatment plan as noted by the mid-level provider above. I agree with the findings and plan of care. MADHURI GUSTAFSON MD, ELIZABETH FNP Sep 07, 2024 13:15
[2024-09-07] MEDS ORDERED: ZOSYN 3.375GM+NS 50ML 50 ML IV SCH (22:30)
== END 2024-09-07 16:15 | disposition home or self-care (01) | DRG 871 ==
LOC: EDH 20:39 → EDHIP 09-02 04:12 → 3CH 09-02 05:16 → 3BH 09-04 22:15
PROVIDERS: ADMIT Internal Medicine; ATTEND Internal Medicine
PROC: 5A1D70Z Performance of Urinary Filtration, Intermittent, Less than 6 Hours Per Day (ICD-10-PCS; principal; 2024-09-04)
PROC: 5A1D70Z Performance of Urinary Filtration, Intermittent, Less than 6 Hours Per Day (ICD-10-PCS; 2024-09-06)
DX: A41.9 Sepsis, unspecified organism (principal); N18.6 End stage renal disease; K61.1 Rectal abscess; I12.0 Hypertensive chronic kidney disease with stage 5 chronic kidney disease or end stage renal disease; N30.00 Acute cystitis without hematuria; Z68.42 Body mass index [BMI] 45.0-49.9, adult; D63.1 Anemia in chronic kidney disease; E11.22 Type 2 diabetes mellitus with diabetic chronic kidney disease; E66.01 Morbid (severe) obesity due to excess calories; E11.649 Type 2 diabetes mellitus with hypoglycemia without coma; B96.1 Klebsiella pneumoniae [K. pneumoniae] as the cause of diseases classified elsewhere; E78.00 Pure hypercholesterolemia, unspecified; E11.65 Type 2 diabetes mellitus with hyperglycemia; K62.89 Other specified diseases of anus and rectum; E87.6 Hypokalemia; Z82.3 Family history of stroke; Z99.2 Dependence on renal dialysis; Z82.49 Family history of ischemic heart disease and other diseases of the circulatory system; Z83.3 Family history of diabetes mellitus
CPT/HCPCS: 36415; 74176; 80048; 80053; 80202; 81001; 82550; 82948; 83036; 83605; 83735; 84100; 84145; 84484; 84703; 85025; 85027; 85610; 85651; 85730; 86704; 86706; 87040; 87070; 87076; 87086; 87186; 87340; 90935; 93005; 99285; G0378; J1171; J1644; J1815; J2543; J3370; J3490; P9047; 3370